=== PATIENT | female | born 1990 | race Caucasian/White ===

== ENCOUNTER 2019-08-24 22:54 | Emergency (ER) | payer SELFPAY ==
[2019-08-24 23:15] VITALS: BP 122/79; PULSE 59; RESP 16; TEMP 36.8; O2SAT 99; BMI 25.7
--- NOTE | 2019-08-24 23:21 | US_ITS ---
WS: [id number] RIGHT UPPER QUADRANT ULTRASOUND HISTORY: Pain COMPARISON: 06/13/2017 Liver: 12.1 cm in length. Normal size and echogenicity with no intrahepatic dilatation. No mass. Gallbladder: Normally distended gallbladder. Nonshadowing focus near the neck of the gallbladder. May be a nonshadowing stone or polyp. No gallbladder wall thickening. No pericholecystic fluid. CBD: 0.4 cm Pancreas: Poorly visualized. Right kidney: 10.3 cm in length. Normal echogenicity with no mass or hydronephrosis. Aorta and IVC: Unremarkable. No ascites. US/US gall bladder [id number] IMPRESSION: 1. Nonshadowing adherent gallstone,, fold versus polyp. 2. No bile duct dilatation or wall thickening.
--- NOTE | 2019-08-24 23:24 | W.ED.ABDPA2 ---
HPI - Abdominal Pain General: Chief Complaint: Abdominal Pain Stated Complaint: abd pain Time Seen by Provider: 08/24/19 23:17 Source: patient and family Mode of arrival: ambulatory Limitations: no limitations History of Present Illness: HPI narrative: Patient is a very nice 28-year-old female who presents to ED today along with her mother for complaints of right upper abdominal pain that has been intermittently present over the past year but severe starting around 5 PM this evening. Luxembourgish is not patient's or mother's primary language so majority of history comes from the mother's interpretation. She states patient was diagnosed with cholelithiasis approximately a year ago. She has had intermittent pains worse with eating over the past year but nothing that has felt like her pain this evening. She feels nauseous but has not had any vomiting. Reports some mild constipation. She is not having any urinary symptoms. No fevers. She does report a chance of . Patient is a [id number] female. MD elicited complaint: abdominal pain Pertinent past history: other (cholelithiasis) Onset (ago): hour(s) (has had intermittently x one year but severe starting around 5pm this evening) Pain Consistency: constant Location: RUQ Severity: severe Quality: stabbing and sharp Radiation: RUQ Exacerbating factors: eating and movement Relieving factors: nothing Associated Symptoms: Reports nausea; Denies change in stool character, chills, diarrhea, dysuria, fever(s), heartburn, hematochezia, hematemesis, fecal incontinence, melena, syncope and vomiting Related Data: Date of Last Menstrual Period: 07/23/19 Review of Systems General: Reports: 10 or more systems reviewed and unremarkable except in HPI and below Const: Denies: fever, chills, body aches, fatigue or malaise Eyes: Denies: change in vision or blurry vision Card: Denies: chest pain, palpitations, irregular heart rhythm, lightheadedness, syncope or shortness of breath on exertion Resp: Denies: shortness of breath, productive cough or pain on inspiration GI: Reports: abdominal pain and nausea; Denies: vomiting, vomiting blood, heartburn/indigestion, diarrhea, fecal incontinence, change in stool character, blood in stool, black tarry stool or fatty stool : Denies: flank pain, difficulty urinating, painful urination, urinary frequency, urinary urgency or urinary hesitancy Musc: Denies: neck pain, back pain or joint pain Skin/Breast: Denies: rash Neuro: Denies: headache, numbness in extremities, weakness in extremities or changes in sensation PFSH ED PFSH: Social History Smoking and tobacco status: never smoked Female Reproductive History: Date of last menstrual period: 07/23/19 Physical Exam Const: COMMON NORMALS: average body habitus, oriented x3, no limitations, healthy appearing, alert and well nourished GENERAL APPEARANCE: cooperative and in distress (appears very uncomfortable due to pain) HENMT: COMMON NORMALS: normocephalic and head/scalp atraumatic HEAD & SCALP: normocephalic and atraumatic Resp: COMMON NORMALS: normal respiratory effort and clear to auscultation bilaterally AUSCULTATION: clear to auscultation bilaterally Cardio: COMMON NORMALS: regular rate and regular rhythm RATE: regular rate RHYTHM: regular rhythm GI: COMMON NORMALS: normal to inspection, nondistended, normoactive bowel sounds, soft to palpation, no hepatosplenomegaly and no masses PALPATION: Yes soft, Yes tender (very tender to RUQ; positive Villanueva's; mild tenderness to RLQ) and Yes no hepatosplenomegaly : COMMON NORMALS: Yes no CVA tenderness BLADDER/KIDNEY EXAM: Yes no CVA tenderness Back/Pelvis: COMMON NORMALS: no CVA tenderness OTHER: states pain from RUQ radiates into back Extremity: COMMON NORMALS: normal to inspection Neuro: COMMON NORMALS: oriented x3 SENSORIUM/ORIENTATION: Yes alert Skin: COMMON NORMALS: no rashes or lesions noted GENERAL SKIN EXAM: no rashes or lesions noted Course Vital Signs: Vital signs: Vital Signs Temperature 98.3 F 08/24/19 23:15 Pulse Rate 54 L 08/25/19 00:31 Respiratory Rate 16 08/25/19 00:31 Blood Pressure 100/61 08/25/19 00:31 Pulse Oximetry 97 08/25/19 00:31 MDM - Abdominal Pain MDM Narrative: Medical decision making narrative: Pt feels better after medications given here. Patient is not tachycardic or febrile. She has no white count on her CBC. Patient's LFTs are normal. Ultrasound report was called to Dr. Miguel who relayed to me. He recommends getting patient set up with outpatient general surgery follow-up. Information placed with case management. Strict return to ED precautions given. Lab Data: Labs: Lab Results 08/24/19 08/24/19 08/24/19 Range/Units 23:40 23:40 23:40 WBC 4.6 (4.0-10.0) 10^3/ uL RBC 4.50 (4.1-5.3) 10^6/u L Hgb 14.0 (11.5-15.3) g/dL Hct 41.2 (37.0-47.0) % MCV 91.6 (81-99) fL MCH 31.1 (28.0-34.0) pg MCHC 34.0 (30.0-36.0) g/dL RDW 11.9 L (12.1-15.1) % Plt Count 201 (130-400) 10^3/c mm MPV 10.1 (7.4-10.4) fL Neut % (Auto) 46.6 % Lymph % (Auto) 43.2 % [place] % (Auto) 7.2 % Eos % (Auto) 2.6 % Baso % (Auto) 0.2 % Neut # (Auto) 2.2 (1.8-7.7) 10^3/u L Lymph # (Auto) 2.0 (0.8-4.8) 10^3/u L [place] # (Auto) 0.3 (0.2-0.9) 10^3/u L Eos # (Auto) 0.1 (0.0-0.8) 10^3/u L Baso # (Auto) 0.0 (0.0-0.1) 10^3/u L Nucleated RBC % (a uto) 0 % Nucleated RBCs # 0.0 /100WBC Sodium 140 (136-145) mmol/L Potassium 3.4 L (3.5-5.1) mmol/L Chloride 101 (98-107) mmol/L Carbon Dioxide 23 (22-29) mmol/L Anion Gap 19.4 H (5-19) BUN 8 (6-20) mg/dL Creatinine 0.6 (0.5-0.9) mg/dL GFR Calculation 119.9 (90-130) mL/min Glucose 96 (65-115) mg/dL Calculated Osmolal ity 286 (285-295) mOsm/k g Calcium 10.8 H (8.5-10.5) mg/dL Total Bilirubin 0.7 (0.15-1.2) mg/dL AST 16 (0-32) U/L ALT 11 (0-33) U/L Alkaline Phosphata se 58 (35-105) IU/L Total Protein 7.6 (6.6-8.7) g/dL Albumin 4.9 (3.5-5.2) g/dL Globulin 2.7 (1.3-4.6) g/dL Lipase 54 (13-60) U/L HCG, Qual Negative (Negative) Urine Color (Yellow) Urine Appearance (CLEAR) Urine pH (5-7) Ur Specific Gravit y (1.005-1.030) Urine Protein (Negative) Urine Glucose (UA) (Normal) Urine Ketones (Negative) Urine Blood (Negative) Urine Nitrate (Negative) Urine Bilirubin (NEGATIVE) Prot Sulfosalicyli c Acd Urine Urobilinogen (Negative) mg/dL Ur Leukocyte Olivia ase (Negative) Urine RBC (0-2) /hpf Urine WBC (0-5) /hpf Ur Squamous Epith Cells (0-5) Urine Bacteria (NONE) 08/25/19 Range/Units 00:05 WBC (4.0-10.0) 10^3/ uL RBC (4.1-5.3) 10^6/u L Hgb (11.5-15.3) g/dL Hct (37.0-47.0) % MCV (81-99) fL MCH (28.0-34.0) pg MCHC (30.0-36.0) g/dL RDW (12.1-15.1) % Plt Count (130-400) 10^3/c mm MPV (7.4-10.4) fL Neut % (Auto) % Lymph % (Auto) % [place] % (Auto) % Eos % (Auto) % Baso % (Auto) % Neut # (Auto) (1.8-7.7) 10^3/u L Lymph # (Auto) (0.8-4.8) 10^3/u L [place] # (Auto) (0.2-0.9) 10^3/u L Eos # (Auto) (0.0-0.8) 10^3/u L Baso # (Auto) (0.0-0.1) 10^3/u L Nucleated RBC % (a uto) % Nucleated RBCs # /100WBC Sodium (136-145) mmol/L Potassium (3.5-5.1) mmol/L Chloride (98-107) mmol/L Carbon Dioxide (22-29) mmol/L Anion Gap (5-19) BUN (6-20) mg/dL Creatinine (0.5-0.9) mg/dL GFR Calculation (90-130) mL/min Glucose (65-115) mg/dL Calculated Osmolal ity (285-295) mOsm/k g Calcium (8.5-10.5) mg/dL Total Bilirubin (0.15-1.2) mg/dL AST (0-32) U/L ALT (0-33) U/L Alkaline Phosphata se (35-105) IU/L Total Protein (6.6-8.7) g/dL Albumin (3.5-5.2) g/dL Globulin (1.3-4.6) g/dL Lipase (13-60) U/L HCG, Qual (Negative) Urine Color Colorless (Yellow) Urine Appearance Hazy A (CLEAR) Urine pH 8 H (5-7) Ur Specific Gravit y 1.015 (1.005-1.030) Urine Protein Neg (Negative) Urine Glucose (UA) Norm (Normal) Urine Ketones 1+ H (Negative) Urine Blood Neg (Negative) Urine Nitrate Negative (Negative) Urine Bilirubin Neg (NEGATIVE) Prot Sulfosalicyli c Acd Negative Urine Urobilinogen Norm (Negative) mg/dL Ur Leukocyte Olivia ase Negative (Negative) Urine RBC None (0-2) /hpf Urine WBC None (0-5) /hpf Ur Squamous Epith Cells 25-40 H (0-5) Urine Bacteria Trace (NONE) Imaging Data ^: US gallbladder: My impression: Josr D-one gallstone in neck of gallbladder, another in fundus; no acute cholecystitis Discharge Plan Discharge Patient Disposition: Home, Self-Care Clinical Impression: Cholelithiasis Qualifiers: Cholelithiasis location: gallbladder Cholecystitis presence: without cholecystitis Biliary obstruction: without biliary obstruction Qualified Code(s): K80.20 - Calculus of gallbladder without cholecystitis without obstruction Condition: Stable Prescriptions: New hydrocodone-acetaminophen 5-325 mg tablet 1 tab PO Q4H PRN (Reason: pain) Qty: 20 RF: 0 ondansetron HCl [Zofran] 4 mg tablet 4 mg PO Q6H PRN (Reason: nausea and vomiting) Qty: 14 RF: 0 Discharge Orders: Discharge Order (Routine); Ordered 08/25/19 Ordered By: Wanda Gardner Referrals: Messi Siegel MD [Family Provider] - Discharge Diet: Low Fat Discharge Activity: Increase activity as tolerated Patient Instructions: Cholelithiasis Activity Restrictions/Additional Instructions: As discussed case management should contact you to set you up with general surgery. I have written you for pain and nausea medications however if these do not control your pain adequately or if pain continues to worsen, you have repetitive episodes of vomiting, fevers greater than 100.4, or any other concerns you may have you may need to return to the emergency department for reevaluation. Coding Level of Care Code ED [employer] Science Teacher for Eveline Bateman Exam Comprehensive
[2019-08-24] MEDS: ondansetron 2 mg/ML SDV 2 mL 4 MG IVP (23:51)
[2019-08-24] MEDS: sodium chloride 0.9% 1,000 ML 100 ML IV (23:51)
[2019-08-24] MEDS: morphine 4 mg/mL SDV 1 mL IVP (23:52)
[2019-08-24 23:53] LABS: Basophils % 0.2 %; Eosinophils # 0.1 10^3/uL (0.0-0.8); Eosinophils % 2.6 %; Hematocrit 41.2 % (37.0-47.0); Lymphocytes % 43.2 %; Mean Corpuscular Hemoglobin 31.1 pg (28.0-34.0); Mean Corpuscular Volume 91.6 fL (81-99); Mean Platelet Volume 10.1 fL (7.4-10.4); Monocytes # 0.3 10^3/uL (0.2-0.9); Monocytes % 7.2 %; Neutrophils # 2.2 10^3/uL (1.8-7.7); Neutrophils % 46.6 %; Nucleated Red Blood Cells % 0 %; Platelet Count 201 10^3/cmm (130-400); Red Cell Distribution Width 11.9 % (12.1-15.1); White Blood Count 4.6 10^3/uL (4.0-10.0)
[2019-08-25 00:09] LABS: Alanine Aminotransferase 11 U/L (0-33); Albumin Level 4.9 g/dL (3.5-5.2); Alkaline Phosphatase 58 IU/L (35-105); Anion Gap 19.4 (5-19); Aspartate Amino Transferase 16 U/L (0-32); Blood Urea Nitrogen 8 mg/dL (6-20); Calcium 10.8 mg/dL (8.5-10.5); Carbon Dioxide 23 mmol/L (22-29); Chloride 101 mmol/L (98-107); Globulin 2.7 g/dL (1.3-4.6); Glomerular Filtration Rate 119.9 mL/min (90-130); Glucose 96 mg/dL (65-115); Lipase 54 U/L (13-60); Osmolality Calculated 286 mOsm/kg (285-295); Potassium 3.4 mmol/L (3.5-5.1); Sodium 140 mmol/L (136-145); Total Bilirubin 0.7 mg/dL (0.15-1.2); Total Protein 7.6 g/dL (6.6-8.7)
[2019-08-25 00:18] LABS: HCG, Serum Qual Negative (Negative)
[2019-08-25 00:28] VITALS: RESP 16
[2019-08-25] MEDS: fentaNYL 50 mcg/mL INJ 2mL IVP (00:28)
[2019-08-25 00:31] VITALS: BP 100/61; PULSE 54; RESP 16; O2SAT 97
[2019-08-25 00:50] LABS: Urine Color Colorless (Yellow)
[2019-08-25 00:51] LABS: Bilirubin Urine Neg (NEGATIVE); Blood Urine Neg (Negative); Glucose Urine UA Norm (Normal); Ketones Urine 1+ (Negative); Leukocyte Esterase Urine Negative (Negative); Nitrate Urine Negative (Negative); Protein Urine Neg (Negative); Specific Gravity, Urine 1.015 (1.005-1.030); Sulfosalicylic Acid Urine Negative; Urine Appearance Hazy (CLEAR); Urobilinogen Urine Norm (Negative); pH Urine 8 (5-7)
[2019-08-25 00:52] LABS: Add Urine Culture? No; Bacteria Urine TRACE; Squamous Epithelial Cell Urine 25-40 (0-5)
[2019-08-25 01:31] VITALS: BP 106/53; PULSE 54; RESP 16; O2SAT 98
[2019-08-25] MEDS: ondansetron 4 MG Tablet PO (01:31)
[2019-08-25] MEDS: HYDROcodone-acetaminophen 5-325 mg Tablet 2 TAB PO (01:31)
--- NOTE | 2019-08-25 10:18 | DCPLANNER ---
sales center manager had message to schedule a follow up appointment for patient with general surgery. sales center manager called [facility], spoke with Jodie. A follow up appointment was scheduled for Wednesday, August 28, 2019 at 11:[address] Cummings. sales center manager called patients and informed the of the scheduled appointment.
--- NOTE | 2019-09-08 13:59 | DCPLANNER ---
Patient did attend appointment scheduled for 08.28.19 with surgical first assistant clinic.
== END 2019-08-25 01:34 | disposition home or self-care (01) ==
PROVIDERS: Emergency Medicine; Emergency Provider Physician Assistant; Family Provider Family Medicine
DX: K80.20 Calculus of gallbladder without cholecystitis without obstruction (principal)
CPT/HCPCS: 12345; 76705; 80053; 81001; 83690; 84703; 85025; 96361; 96374; 96375; 99282; 99284; J2270; J2405; J3010; J7030; Q0162

== ENCOUNTER 2019-09-04 06:03 | Day surgery (SDC) | payer SELFPAY ==
[2019-09-01 12:08] VITALS: BMI 25.3
[2019-09-04] VITALS (15 sets, daily range): BP systolic 100–124; BP diastolic 63–86; PULSE 48–75; RESP 11–28; TEMP 36.4–36.6; O2SAT 97–100
--- NOTE | 2019-09-04 06:16 | W.PM.OPSUD ---
Surgery/Procedure H&P Update DATE OF PROCEDURE: September 04, 2019 DATE H&P PERFORMED: 08/28/19 H&P UPDATE INFORMATION: I have reviewed H&P completed within last 30 days, I have examined patient prior to procedure and No changes to prior documentation PREOP DIAGNOSIS: Biliary colic PRIMARY INDICATION FOR PROCEDURE: The same PLANNED PROCEDURE: Operation Date: 09/04/19 07:20 Proposed Procedures p Laparoscopic Cholecystectomy 30948 K80.20(Not Applicable) - Willy Cummings MD
--- NOTE | 2019-09-04 06:38 | ANES.PREANE2 ---
Pre-Anesthetic Assessment Pre-Anesthetic Assessment: Height/Weight: Height 1.6 m Weight 64.864 kg Preop Diagnosis: Biliary colic Proposed Procedure: Operation Date: 09/04/19 07:00 Proposed Procedures p Laparoscopic Cholecystectomy 28521 K80.20(Not Applicable) - Willy Cummings MD Familial anesthetic complications: None Was Beta Dennis taken within 24 hours: N/A Last intake: Intake NPO > 8 hrs Last Liquid Date 09/03/19 Last Liquid Time 21:30 Last Solid Date 09/03/19 Last Solid Time 17:00 Social: Social History: No alcohol and No tobacco Exam: Pre-Anes Outpt Exam: alert, oriented x 3, clear to auscultation bilaterally and regular rate & rhythm Airway: Cervical ROM: WNL MP: 3 Dentition: Full Pulmonary: Pulmonary: None reported CV/HEM: CV/HEM: None reported : : None reported Hepatic: Hepatic: None reported GI: GI: None reported Comments: gallstones Metabolic: Metabolic: None reported Musc/skel: Musc/skel: None reported Neuropsych: Neuropsych: None reported Anesthetic Plan: ASA status: 1 Anesthesia: General Risk of > 500 ml blood loss (7ml/kg in children): No PFSH Anesthesia PFSH: Social History Smoking and tobacco status: never smoked Female Reproductive History: Date of last menstrual period: 07/23/19 Data Anesthesia Cardiac Studies: No Data to Display
[2019-09-04] MEDS: sodium chloride 0.9% 1,000 ML 30 ML IV (06:45)
[2019-09-04 06:52] LABS: OR HCG Qualitative Urine Negative (Negative)
[2019-09-04] MEDS: lidocaine 2% INJ 20 mL INJECTION (07:13)
--- NOTE | 2019-09-04 08:02 | PM.OP ---
Operative Report Date of procedure: September 04, 2019 Pre-op Diagnosis: Biliary colic Post-op diagnosis: other (Chronic cholecystitis) Procedure Done: Laparoscopic cholecystectomy Specimens removed/disposition: Gallbladder and contents Surgeon: Willy Cummings Mathematical Engineering Technician: Surgical mary grace Patricia Circulating nurse Caro Anesthesia: General (clean room assembler Luis) Estimated blood loss (mL): 10 Complications: No immediate complications Condition: stable Disposition: same day Brief History: This is a pleasant 28 years old female patient presenting to my practice as a consultation for symptomatic biliary colic. Plan of care; After thorough history physical examination and reviewing the chart ,I counseled the patient for laparoscopic cholecystectomy possible open, indications risks including but not limited injury to the common bile duct and other viscera.benefits and alternatives all discussed with the patient, and she did agree to proceed. All questions have been answered and all concerns have been addressed to patient's satisfaction. Informed consent per chart Procedure: Patient was identified in the holding area and taken back to the operative suite, placed in supine position intubated by anesthesia . Time-out was done verifying the patient's name/date of /planned procedure and destination after the procedure, all were in agreement. SCDs confirmed to be functioning, preoperative antibiotics administered per protocol, and beta whitney protocol was confirmed. Patient was appropriately secured to the table, footboard was applied to the OR table, before prep and drape anesthesia was asked to tilt the table back and forth to make sure that the patient is appropriately secured and she was. Prep and drape of the abdomen was done under the usual sterile technique, followed by that supraumbilical skin incision,skin incision was done by a 15 blade knife, and stay sutures were applied to the fascia and Alonzo trocar technique was used to enter the abdominal without injuring any abdominal viscera, started by low flow gas insufflation followed by a high flow, started with a 10 mm laparoscope and under direct vision there was no evidence of any injuries, the scope then switched to a 30? ,10 millimeter scope and under direct visualization 5 millimeter trocar was inserted in the epigastric region followed by two 5 mm trocars were inserted in the right upper quadrant that was done after injection of local lidocaine 2% at all incision sites. Gallbladder showed chronic cholecystitis. Patient was then positioned in the head up and tilted to the left dissection started by taking adhesions down using [place] forceps with heat, continued dissection until I identified the critical view of the cystic duct and cystic artery where seen connected to the gallbladder. Clips were applied on the cystic duct towards the common bile duct 1 towards the gallbladder then divided is in sharp scissors, 2 clips were then applied onto the cystic artery and 1 towards the gallbladder and divided by sharp scissors. Additional traversing vessel was clipped and divided Dissection was then carried along of the gallbladder from the gallbladder fossa using cautery as well as sharp dissection with heat energy. The gallbladder then was dissected out from the gallbladder fossa totally , cholecystectomy was then achieved and was placed in an Endo Catch bag and then retrieved from the Alonzo trocar site under direct visualization using a 5 mm 30? scope through the epigastric trocar, specimen was then passed to the circulating nurse to go for permanent pathology,irrigation and hemostasis was done to the gallbladder fossa after hemostasis was secured, final survey laparoscopy was done that showed no injuries.Suction irrigation was obtained The supraumbilical fascial defect was then closed using interrupted Vicryl sutures using a fascial closure device ;Dewayne Lee under direct visualization Gas was allowed to deflate,Trocars were then taken out under direct vision there was no evidence of bleeding Specimen was passed to the circulating nurse for permanent pathology. No drains were placed and the supraumbilical incision as well as all trocar sites were closed by by 4-0 Monocryl to approximate the skin edges of the supraumbilical incision, dressing was applied in the form of Dermabond and the patient patient got extubated and was taken to recovery area in a stable condition. Count of sponges,needles and instruments were completed at the end of the procedure I was present for the whole entire procedure.
--- NOTE | 2019-09-04 08:17 | SUR.PHASEI ---
0815 PATIENT TO PACU AT THIS TIME FROM OR. RR EVEN AND UNLABORED. NO DISTRESS. PATIENT SPO2 98% ON ROOM. 4 INCISIONS TO ABDOMEN, CLOSED WITH EXOFIN, CDI.
[2019-09-04] MEDS: fentaNYL 50 mcg/mL INJ 2mL IVP (08:51)
--- NOTE | 2019-09-04 09:09 | SUR.PHASEI ---
0907 PATIENT TO OPS AT THIS TIME. AROUSES TO VERBAL STIMULI, DROWSY. SPO2 97% ON RA. PAIN /10. DENIES NAUSEA.
[2019-09-04] MEDS: HYDROcodone-acetaminophen 5-325 mg Tablet 1 TAB PO (09:44)
--- NOTE | 2019-09-04 12:04 | SUR.PHASEII ---
JAIRO ONE GIVEN TO PT PRIOR TO LEAVING PER DR VILLANUEVA ORDER AND INSTRUCTED PT TO TAKE AT 145PM AND VERBALIZED UNDERSTANDING,INSTRUCTED FRIEND JACKIE OF THIS ALSO BECAUSE SHE PICKED PT UP IN [facility] TO GO HOME
== END 2019-09-04 11:55 | disposition home or self-care (01) ==
PROVIDERS: Anesthesiology; Family Provider Family Medicine; PCP Family Medicine; Visit Provider Surgery
PROC: 0FT44ZZ Resection of Gallbladder, Percutaneous Endoscopic Approach (ICD-10-PCS; CPT 47562; principal; 2019-09-04 07:00)
DX: K80.10 Calculus of gallbladder with chronic cholecystitis without obstruction (principal)
CPT/HCPCS: 47562; 12345; 81025; 84703; 88304; 96365; J0131; J0690; J1100; J2001; J2370; J2405; J2704; J2710; J3010; J3490; J7030

== ENCOUNTER 2020-06-13 09:35 | Inpatient (IN) | payer MEDICAID, SELFPAY ==
[2020-06-13] VITALS (66 sets, daily range): BP systolic 89–122; BP diastolic 50–83; PULSE 62–99; RESP 16–18; TEMP 36.4–36.9; O2SAT 98–100; BMI 29.9
[2020-06-13] MEDS: miSOPROStol 100 mcg tablet 25 MCG VAGINAL ×2 (11:00→15:16)
[2020-06-13 11:01] LABS: Basophils % 0.2 %; Eosinophils # 0.1 10^3/uL (0.0-0.8); Eosinophils % 0.8 %; Hemoglobin 11.6 g/dL (11.5-15.3); Lymphocytes # 1.4 10^3/uL (0.8-4.8); Lymphocytes % 21.5 %; Mean Corpuscular HGB Conc 33.1 g/dL (30.0-36.0); Mean Corpuscular Hemoglobin 30.8 pg (28.0-34.0); Mean Corpuscular Volume 92.8 fL (81-99); Mean Platelet Volume 10.3 fL (7.4-10.4); Monocytes # 0.4 10^3/uL (0.2-0.9); Monocytes % 6.2 %; Neutrophils # 4.66 10^3/uL (1.8-7.7); Neutrophils % 70.5 %; Nucleated Red Blood Cells % 0 %; Platelet Count 208 10^3/cmm (130-400); Red Blood Count 3.77 10^6/uL (4.1-5.3); Red Cell Distribution Width 13.7 % (12.1-15.1); White Blood Count 6.6 10^3/uL (4.0-10.0)
[2020-06-13] MEDS: lactated ringers 1,000 ML 999 ML IV ×2 (17:10→18:03)
--- NOTE | 2020-06-13 17:43 | P.ANESASSM_ITS ---
Pre-Anesthetic Assessment Pre-Anesthetic Assessment: Height/Weight: Height 1.68 m Weight 84.368 kg Temp Pulse Resp BP 97.7 F 67 17 104/66 06/13/20 14:00 06/13/20 15:46 06/13/20 14:53 06/13/20 15:46 Preop Diagnosis: labor pain Proposed Procedure: epidural Was Beta Dennis taken within 24 hours: N/A Social: Social History: No alcohol and No tobacco Exam: Pre-Anes Outpt Exam: alert, oriented x 3, clear to auscultation bilaterally and regular rate & rhythm Airway: Submandibular: WNL Cervical ROM: WNL MP: 2 Dentition: Full Pulmonary: Pulmonary: None reported CV/HEM: CV/HEM: None reported : : None reported Hepatic: Hepatic: None reported GI: GI: GERD Metabolic: Metabolic: None reported Musc/skel: Musc/skel: None reported Neuropsych: Neuropsych: HAINES Anesthetic Plan: ASA status: 2 Anesthesia: Regional (specify below) Risk of > 500 ml blood loss (7ml/kg in children): No Meds/Allergies Current Medications: Current Medications Generic Name Dose Route Start Last Admin Trade Name Freq PRN Reason Stop Dose Admin Dextrose/Lactated Ringer's 1,000 mls @ 125 m ls/hr 06/13/20 10:15 06/13/20 16:06 Dextrose 5%-Lact ated Ringers IV Not Given .Q8H MALCOLM Lactated Ringer's 1,000 mls @ 999 m ls/hr 06/13/20 17:03 06/13/20 17:10 Lactated Ringers IV 999 mls/hr .Q1H1M PRN Administration See label comment s PFSH Anesthesia PFSH: Medical History Right upper quadrant abdominal pain Surgical History History of laparoscopic cholecystectomy (~08/2019) Family History Denies family history of Anesthesia complication Bleeding disorder Social History Smoking and tobacco status: never smoked Female Reproductive History: Date of last menstrual period: 07/23/19 : 7 Data Anesthesia CBC & Chem 7: 06/13/20 10:10 Other Labs: Laboratory Results - last 48 hr 06/13/20 10:10 WBC 6.6 RBC 3.77 L Hgb 11.6 Hct 35.0 L MCV 92.8 MCH 30.8 MCHC 33.1 RDW 13.7 Plt Count 208 MPV 10.3 Neut % (Auto) 70.5 Lymph % (Auto) 21.5 [place] % (Auto) 6.2 Eos % (Auto) 0.8 Baso % (Auto) 0.2 Neut # (Auto) 4.66 Lymph # (Auto) 1.4 [place] # (Auto) 0.4 Eos # (Auto) 0.1 Baso # (Auto) 0.0 Nucleated RBC % (auto) 0 Nucleated RBCs # 0.0 Cardiac Studies: No Data to Display
--- NOTE | 2020-06-13 17:49 | PC.NURSE ---
sitting up for epidural placement
--- NOTE | 2020-06-13 18:11 | P.ANES_ITS ---
Anesthesia Procedures Procedure/Date: 06/13/20 epidural Procedure Narrative: epidural complete, bolus given, epidural pump initiated with ISSUING OPERATOR education given, vitals taken during procedure using OBIX system and satisfactory throughout, patient admits to decrease pain, report of procedure to OB RN Epidural: Time Out Performed: Yes Consents Signed: Procedure Consent Consent: requested by attending/covering physician, from patient, risks and benefits reviewed and patient agrees to proceed Lumbar Level: L3-L4 Epidural position: sitting Epidural procedure: sterile prep of area, 1% lidocaine to numb the area (3 mL), 18 g needle, negative for paresthesia passed, neg for paresthesia, test dose given, 1.5% xylocaine 1:200k epi (5 mL), 0.2% Ropivacaine bolus ml (5 mL), placed PCEA, no systemic response, sterile dressing applied, L.U.D. no apparent complications and 0.2% Ropiavacaine @ mls/hr (13 mL/hr)
[2020-06-14] VITALS (108 sets, daily range): BP systolic 79–156; BP diastolic 45–84; PULSE 63–132; RESP 14–18; TEMP 36.2; O2SAT 98–100
[2020-06-14] MEDS: miSOPROStol 200 mcg Tablet 800 MCG PR (01:05)
--- NOTE | 2020-06-14 01:13 | PM.DELIVERY ---
Delivery Note: Date of delivery: June 14, 2020 this 29-year-old 7 now para 7 female with an EDC of June 15, 2020 was admitted on the day prior to delivery for misoprostol cervical ripening for induction for elective vaginal delivery. There were no major problems throughout her course. The patient was given misoprostol 25 mcg x 2 doses after which active labor ensued and she slowly dilated to complete cervical dilatation. She delivered by spontaneous vaginal delivery a healthy, viable male with Apgars of 8 and 9 at 1 and 5 minutes respectively. The infant delivered at 00 52. The baby cried well at . There was a nuchal cord x1. After delivery, the infant was suctioned and laid on mother's abdomen. After approximately 2-1/2 minutes the umbilical cord was clamped and then cut by the 's father. The umbilical cord had 3 blood vessels. The placenta delivered spontaneously at 00 57 and appeared to be intact. Upon delivery, the fundus appears firm. However, after several minutes she began bleeding much more heavily in spite of misoprostel and Tranxemic acid This physician returned to the room and with bimanual exam found her to have an inverted uterus. Assistance was called for and this physician begin attempting to maneuver the uterus back. This physician was unsuccessful and we brought the patient back to the operating room where we began procedures for anesthesia be provided and Dr. Chris to assist in replacement of the inverted uterus. I greatly appreciate her assistance and the assistance of anesthesia. Pre-Delivery Course: With patient was followed through her course by this physician. There were no major problems or concerns through her course. Maternal blood type was AB+ with antibody screen negative. Group B strep was negative and rubella was immune. She did suffer from Covid 19 a few weeks prior to delivery and therefore required no further testing. Delivery: Spontaneous vaginal delivery. Uterine inversion as described above and she required operating room and anesthesia for replacing the uterus. This was successfully done by Dr. Griffin. Post-Delivery Status: Patient is improving with uterine placement. She presently is receiving 2 units of O- blood and will be followed closely for further needs and further bleeding. A&P Assessment and plan (1) Uterine inversion: Patient required going to the operating room for replacement of the inverted uterus. Dr. Griffin was consulted and I greatly appreciate her assistance. We will monitor blood pressure. Also, will begin ampicillin and gentamicin for possible prevention of infection. Status: Acute (2) Spontaneous vaginal delivery: Vaginal delivery went without significant problems or concerns initially. However there was an inverted uterus found shortly after delivery. Status: Acute Coding Level of Care Code Acute Coil Wrapper for [facility] Fwd Diagnoses Uterine inversion N85.5 Spontaneous vaginal delivery O80
[2020-06-14] MEDS: lactated ringers 1,000 ML 999 ML IV (01:26)
--- NOTE | 2020-06-14 02:03 | P.CONIM_ITS ---
Providers/Reason For Consult Consulting Physican/Specialty*: Cori Griffin MD. PRESSURIZATION MECHANIC Reason for Consult*: uterine inversion Requesting Physcian: Messi Siegel MD Attending Physician: Messi Siegel MD Primary Care Provider: Messi Siegel MD History of Present Illness History of Present Illness Lizette Eli is a 29 year old female at 39 6/7 weeks who I was consulted to see due to inverted uterus. Review of Systems General: Reports: 10 or more systems reviewed and unremarkable except in HPI and below Meds/Allergies Home Medications and Allergies Home Medications Medication Instructions Recorded Confirmed Last Taken Type fgdlrswa-[id number]-Xl-FA 1 tab PO DAILY 06/13/20 06/13/20 Unknown History [] Allergies Allergy/AdvReac Type Severity Reaction Status Date / Time No Known Allergies Allergy Verified 09/13/19 10:10 Current Medications Current Medications Generic Name Dose Route Start Last Admin Trade Name Freq PRN Reason Stop Dose Admin Dextrose/Lactated Ringer's 1,000 mls @ 125 mls/hr 06/13/20 10:15 06/13/20 16:06 Dextrose 5%-Lactated Ringers IV Not Given .Q8H MALCOLM Lactated Ringer's 1,000 mls @ 999 mls/hr 06/13/20 10:11 06/14/20 01:26 Lactated Ringers IV 999 mls/hr .Q1H1M PRN Administration BLEEDING Lactated Ringer's 1,000 mls @ 999 mls/hr 06/13/20 10:11 06/13/20 18:03 Lactated Ringers IV 999 mls/hr .Q1H1M PRN Administration Per L&D Rescitation Protocol Tranexamic Acid 1,000 mg/ 110 mls @ 330 mls/hr 06/13/20 10:11 06/14/20 01:12 Sodium Chloride IV 330 mls/hr Q30M PRN Administration BLEEDING Ropivacaine 200 mg in 100 mls @ 13 mls/hr 06/13/20 17:15 06/13/20 18:02 Naropin Premix EPIDURAL 13 mls/hr .Q7H42M MALCOLM Administration Lactated Ringer's 1,000 mls @ 999 mls/hr 06/13/20 17:03 06/13/20 17:10 Lactated Ringers IV 999 mls/hr .Q1H1M PRN Administration See label comments PFSH Acute PFSH: Medical History (Updated 06/14/20 @ 02:15 by Messi Siegel MD) Right upper quadrant abdominal pain Surgical History History of laparoscopic cholecystectomy (~08/2019) Family History Denies family history of Anesthesia complication Bleeding disorder Social History Smoking and tobacco status: never smoked Female Reproductive History: Date of last menstrual period: 07/23/19 : 7 Vitals/I&O/Wt Last Vital Signs Temp 98.1 F 06/13/20 19:15 Pulse 82 06/14/20 01:28 Resp 18 06/13/20 18:13 BP 119/56 06/14/20 01:24 Pulse Ox 99 06/14/20 01:28 Weight last 48 hrs Weight 185 lb 15.993 oz Physical Exam Narrative: EXAM NARRATIVE: I was consulted to see the patient regarding a uterine inversion after an uncomplicated vaginal delivery. She was already in the operating room in the dorsal lithotomy position. Anesthesia was present. The patient was alert and able to communicate. Urinary Catheter Management^: Beck: Cath Placed During This Visit: yes Reason for Continuing Indwelling Catheter: Acute Urinary Retention or Obstruction Urinary Catheter Date of Insertion: 06/13/20 Urinary Catheter Time of Insertion: 18:30 A&P Assessment and plan (1) Uterine inversion: Status: Acute Procedures Procedure Narrative On exam, the patient was in the dorsal lithotomy position in trendelenburg. There was a large amount of blood on the pad as I started. I performed a bimanual exam and after removing a large amount of blood and clot, the uterus was found to be inverted. 0.25mg of terbutaline was given subcutaneously. The uterus was still not able to be replaced. Anesthesia then gave her inhaled nitrous and the uterus relaxed and I was able to replace it. I continued to perform uterine massage. Blood products were started. Her bleeding had slowed to a trickle. At this point, she was hemodynamically stable with blood products infusing. Coding Level of Care Code Acute Auto Seat Cover Installer for g Fwd Diagnoses Uterine inversion N85.5
--- NOTE | 2020-06-14 02:50 | ANE.PACU2 ---
Inpatient post-anesthesia follow up: Airway intact: Yes Vital signs: Temperature 98.1 F Pulse Rate 82 Respiratory Rate 18 Blood Pressure 119/56 Pulse Oximetry 99 Oxygen Delivery Me thod Room Air Oxygen Flow Rate Fraction of Inspir ed Oxygen Hydration adequate: Yes Nausea and vomiting: No Pain level: 1 Mental status: Baseline Additional Comments: Patient vitals stabilized after procedure from OBGYN. Good respiratory effort. Patient admits to feeling better after blood and fluid resuscitation. Report to OB RN
[2020-06-14] MEDS: ampicillin 1,000 MG in sodium chloride 0.9% (plus) 50 ML 100 MG IV ×2 (04:35→09:12)
[2020-06-14] MEDS: gentamicin inj 140 MG in sodium chloride 0.9% (100 ml) 100 ML 103.5 MG IV (05:50)
--- NOTE | 2020-06-14 07:24 | P.PN_ITS ---
TYPEWRITER RIBBON WINDER Subjective Labor: Station: +1 Amniotic Membrane Status: Ruptured Monitor Mode: External Contraction Pattern: Irregular Status: Category I Other Post-Op: Subjective HALAL MEAT PACKER Post-Op: patient reports feeling better (She states she is pretty sore but her bleeding has been mild. She got up to the bathroom this morning.) Vitals/I&O/Wt Last Vital Signs Temp 97.2 F L 06/14/20 02:35 Pulse 83 06/14/20 07:21 Resp 16 06/14/20 02:50 BP 88/52 06/14/20 07:21 Pulse Ox 99 06/14/20 06:59 06/13/20 06/14/20 06/14/20 22:59 06:59 14:59 Output Total 750 / 750 Balance -750 / -750 Weight last 48 hrs Weight 84.368 kg Physical Exam Const: COMMON NORMALS: no acute distress, alert and well nourished GENERAL APPEARANCE: cooperative Resp: COMMON NORMALS: normal respiratory effort, No retractions, No use of accessory muscles and clear to auscultation bilaterally AUSCULTATION: clear to auscultation bilaterally Cardio: COMMON NORMALS: regular rate, regular rhythm and No murmurs present (Cardio) RATE: regular rate RHYTHM: regular rhythm GI: COMMON NORMALS: Normal to inspection, nondistended, normoactive bowel sounds present and Soft to palpation (Fundus is firm this morning.) PALPATION: Yes Soft to palpation (Fundus is firm this morning.) Neuro: COMMON NORMALS: moves all extremities, no focal motor deficits and no sensory deficits noted SENSORIUM/ORIENTATION: Yes alert Psych: COMMON NORMALS: mental status grossly normal, Normal thought process present and cooperative THOUGHT PROCESS: Normal thought process present Urinary Catheter Management^: Beck: Cath Placed During This Visit: yes Reason for Continuing Indwelling Catheter: Acute Urinary Retention or Obstruction Urinary Catheter Date of Insertion: 06/13/20 Urinary Catheter Time of Insertion: 18:30 Data : 06/13/20 10:10 A&P Assessment and plan (1) Spontaneous vaginal delivery: Patient is doing well at this time. We will continue routine care. Status: Acute (2) Uterine inversion: She is a little sore. Will provide liquid pain medication at her request. Status: Acute (3) Acute blood loss anemia: She has received 2 units of packed red blood cells and will check a CBC around 10 this morning. May require further transfusion. Status: Acute Attestations Medical Necessity Statement*: This patient delivered earlier this morning by s pontaneous vaginal delivery and had a uterine inversion. She will require at least 1 more midnight hospital stay. Time Spent in Patient Care: 16 - 35 minutes Coding Level of Care Code Acute Long Wall Mining Machine Tender for Chg Fwd Diagnoses Spontaneous vaginal delivery O80 Uterine inversion N85.5 Acute blood loss anemia D62
--- NOTE | 2020-06-14 08:46 | PC.NURSE ---
0118 DR. YOUNG TO BEDSIDE TO ASSESS BLEEDING 0119 DR. YOUNG PERFORMED BIMANUAL EXPLORATION WHERE AN INVERTED UTERUS WAS DISCOVERED. ATTEMPTED TO MANIPULATE UTERUS 0119 DR. RITCHIE CALLED TO UNIT TO ASSIST WITH UTERINE INVERSION 0122 PITOCIN INFUSION AND TXA INFUSION STOPPED PER DR. YOUNG 0123 SURESH PABON CALLED TO UNIT TO ASSIST WITH UTERINE INVERSION 0131 DR. YOUNG STOPS HOLDING PRESSURE ON UTERUS AND PT PREPPED TO GO TO OB OR. 0134 OB OR ROOM TIME 0135 O2 PLACED VIA NONREBREATHER AT 10L PER MIN 0136 SURESH PABON ARRIVES IN OB OR 0137 ROMERO PLACED 0138 PT PLACED IN [place] [address] DR[place] [address] DR. RITCHIE BEGINS PROCEDURE TO CORRECT UTERUS 0146 TERBUTALINE 0.25MG SUBCUT GIVEN 0150 NITRIOUS OXIDE GIVEN 0155 FIRST UNIT OF EMERGENCY BLOOD GIVEN 0206 TEMP 92.0 PER SKIN TEMPERATURE STRIP ON FOREHEAD, JARETT HUGGER PLACED ON PT 0211 METHERGINE 0.2MG GIVEN IN LEFT VASTUS LATERALIS 0216 BM CYTOTEC OUT 0217 97.8 TEMP 0225 PROCEDURE END TIME 0231 SECOND UNIT OF EMERGENCY BLOOD STARTED 0233 TYMPANIC TEMPERATURE 97.1 0234 PACU STARTED 0235 122/76 PULSE 90 RESP 18 100% O2 WITH NONREBREATHER AT 10L 0240 126/65 PULSE 83 RESP 16 O2 100% WITH NONREBREATHER AT 10L 0245 112/69 PULSE 83 RESP 16 O2 100% WITH NONREBREATHER AT 10L 0250 113/74 PULSE 85 RESP 16 O2 100% WITH NONREBREATHER AT 10L 0251 25 ML OF URINE OUT 0254 PT TRANSFERED IN STABLE CONDITION VIA BED TO OB 3 0255 PT ARRIVED IN OB 3 MONITORS PLACED O2 REAPPLIED VIA NONREBREATHER AT 10L 0352 SECOND UNIT OF EMERGENCY BLOOD END
[2020-06-14] MEDS: docusate sodium 100 mg Capsule PO ×2 (09:22→18:39)
[2020-06-14] MEDS: prenatal vitamin Capsule 1 CAP PO (09:22)
[2020-06-14] MEDS: ibuprofen 800 mg tablet PO (09:22)
--- NOTE | 2020-06-14 12:22 | PC.NURSE ---
Consult This mom has much experience with . Reviewed feeding frequency of 8 times in 24 hours or more after the first 24 hours. Feedings lasting 10 min or more. Dad asked about when that can slow down. Gave the recommended, exclusive for 6 months then as other foods are added, the breast feeding slows down. Mom asked about her diet saying she ate so much food and gained weight but could not make more milk. Told her a well balanced diet, not to gain weight and not to lose weight was best. To increase milk the best thing is to nurse more. Mom had just breastfed and said this was the best feeding so far. She was experiencing cramping. Showed her how to massage her uterus using two hands. The cramping eased. Provided contact information.
[2020-06-14 12:59] LABS: Hematocrit 30.2 % (37.0-47.0); Mean Corpuscular HGB Conc 33.1 g/dL (30.0-36.0); Mean Corpuscular Hemoglobin 30.5 pg (28.0-34.0); Mean Corpuscular Volume 92.1 fL (81-99); Platelet Count 196 10^3/cmm (130-400); Red Blood Count 3.28 10^6/uL (4.1-5.3); Red Cell Distribution Width 14.7 % (12.1-15.1); White Blood Count 11.3 10^3/uL (4.0-10.0)
--- NOTE | 2020-06-14 14:26 | SUR.OPER ---
d/c'd pt IV in left AC
[2020-06-14] MEDS: benzocaine-menthol 78 gm Canister 1 SPRAY TOPICAL (21:51)
[2020-06-14] MEDS: lanolin oint 7 gm 1 APPLIC TOPICAL (21:51)
[2020-06-15] MEDS: HYDROcodone-acetaminophen 5-325 mg Tablet PO ×4 (01:51→13:25)
[2020-06-15 06:00] VITALS: BP 102/68
--- NOTE | 2020-06-15 09:18 | PM.OBGYDC ---
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 She is a 7 now para 7 female. The induction and labor and delivery process was not well. However, after delivery there was found to be an inversion of the uterus with significant vaginal bleeding. This was attempted by this physician to be replaced in the delivery room, however this was unsuccessful. Dr. Griffin was consulted as was anesthesiology and she was brought to the operating room where with low-dose general anesthesia the uterus relaxed and the uterus was then replaced into its proper position. The bleeding slowed enormously at that time. However, prior to getting the uterus replaced there was a very large amount of blood loss with hypotension and blood pressure into the 70s systolic. She was given IV fluid boluses and 2 units of O- uncrossed matched red blood cells. Since this was completed she has done extremely well. She is very sore in her uterus area. She did not have a fever but was given 3 doses of intravenous antibiotics prior to discontinuing them. She is ambulating well and has just mild lochia. The uterus is firm but tender. She is tolerating a regular diet and is felt to be stable for discharge home. Information Peripartum Data: Delivery Method: Vaginal Physical Exam Const: COMMON NORMALS: no acute distress GENERAL APPEARANCE: cooperative, comfortable and well kempt Resp: COMMON NORMALS: normal respiratory effort, No retractions, No use of accessory muscles and clear to auscultation bilaterally AUSCULTATION: clear to auscultation bilaterally Cardio: COMMON NORMALS: regular rate, regular rhythm and No murmurs present (Cardio) RATE: regular rate RHYTHM: regular rhythm GI: COMMON NORMALS: Normal to inspection, nondistended, normoactive bowel sounds present and Soft to palpation; negative for non-tender (The uterine fundus is firm but mild to moderately tender to palpation.) PALPATION: Yes Soft to palpation : COMMON NORMALS: Yes no CVA tenderness BLADDER/KIDNEY EXAM: Yes no CVA tenderness Back/Pelvis: COMMON NORMALS: no CVA tenderness Extremity: COMMON NORMALS: normal to inspection, full ROM, capillary refill normal and no pedal edema Neuro: COMMON NORMALS: moves all extremities, no focal motor deficits, no sensory deficits noted and gait normal Psych: COMMON NORMALS: mental status grossly normal, Normal thought process present and normal affect APPEARANCE: Yes well kempt THOUGHT PROCESS: Normal thought process present Skin: COMMON NORMALS: no rashes or lesions noted GENERAL SKIN EXAM: no rashes or lesions noted Urinary Catheter Management^: Beck: Cath Placed During This Visit: yes Reason for Continuing Indwelling Catheter: Acute Urinary Retention or Obstruction Urinary Catheter Date of Insertion: 06/13/20 Urinary Catheter Time of Insertion: 18:30 Discharge Data Data Completed and Pending: Pending at discharge Category Date Time Status PACKED CELLS [Katherine kocyte Reduced RBC ] Stat Lab 06/14/20 01:43 Results Type and Screen S tat Lab 06/14/20 01:43 Results Labs from last 24 hours 06/14/20 06/14/20 06/13/20 12:45 12:27 10:10 WBC 11.3 H Cancelled Corrected WBC Cancelled RBC 3.28 L Cancelled Hgb 10.0 L Cancelled Hct 30.2 L Cancelled MCV 92.1 Cancelled MCH 30.5 Cancelled MCHC 33.1 Cancelled RDW 14.7 Cancelled Plt Count 196 Cancelled MPV 10.0 Cancelled Blood Type AB Positive Rho(D) Type Positive Antibody Screen Negative Crossmatch See Detail Vitals: Last Vital Signs Temp 97.2 F L 06/14/20 02:35 Pulse 77 06/14/20 22:13 Resp 16 06/14/20 22:00 BP 102/68 06/15/20 06:00 Pulse Ox 99 06/14/20 06:59 Discharge Plan Discharge Patient Disposition: Home Condition: Stable Prescriptions: New ibuprofen 800 mg Tablet 800 mg PO TID Qty: 90 RF: 1 DOK 100 mg Capsule 100 mg PO BID Qty: 60 RF: 2 Proctosol HC 2.5 % cream with perineal applicator 1 applic NH BID PRN (Reason: hemorrhoids) Qty: 1 RF: 3 ferrous sulfate 324 mg (65 mg iron) tablet,delayed release (DR/EC) 324 mg PO DAILY Qty: 30 RF: 1 Continued sgzmqljv-ktt-Mv-FA 1 mg Tablet 1 tab PO DAILY RF: 0 Discharge Orders: Discharge Order (Routine); Ordered 06/15/20 Ordered By: Messi Siegel Referrals: Messi Siegel MD [Primary Care Provider] - 6 Weeks Discharge Diet: Usual diet Discharge Activity: Resume usual activity Activity Restrictions/Additional Instructions: Please provide patient 1 oxycodone 5 mg p.o. prior to discharge. Discharge Attestations GEOTECHNICAL OPERATING ENGINEER Time Spent in Discharge Care*: less than 30 min Specific Discharge Activities: Specific discharge activities: educating patient, documenting/other paperwork and evaluating patient/reviewing data Coding Level of Care Code Acute Parts Back Counter Man for [facility] Fwd Diagnoses Uterine inversion N85.5 Spontaneous vaginal delivery O80
[2020-06-15] MEDS: docusate sodium 100 mg Capsule PO (10:51)
[2020-06-15] MEDS: prenatal vitamin Capsule 1 CAP PO (10:51)
[2020-06-15 10:55] VITALS: BP 106/64; PULSE 83
[2020-06-15 11:18] VITALS: RESP 18; TEMP 36.2
[2020-06-15 13:15] VITALS: BP 124/82; PULSE 107
[2020-06-15 13:36] VITALS: RESP 15; TEMP 36.8
[2020-06-15 14:32] VITALS: BP 124/82; PULSE 92; RESP 15; TEMP 36.8; O2SAT 99
== END 2020-06-15 14:30 | disposition home or self-care (01) | DRG 768 ==
PROVIDERS: Admitting Provider Family Medicine; Family Provider Family Medicine; PCP Family Medicine; Visit Provider Family Medicine
DX: O69.81X0 Labor and delivery complicated by cord around neck, without compression, not applicable or unspecified (principal); Z37.0 Single live birth; O71.2 Postpartum inversion of uterus; Z3A.39 39 weeks gestation of pregnancy; O26.53 Maternal hypotension syndrome, third trimester
CPT/HCPCS: 12345; 36415; 51702; 59025; 59409; 85025; 85027; 86850; 86900; 86920; 98960; J0290; J1580; J2210; J2795; P9016

== ENCOUNTER 2020-07-11 03:30 | Emergency (ER) | payer MEDICAID, SELFPAY ==
[2020-07-11 03:36] VITALS: BP 124/78; PULSE 60; RESP 17; TEMP 36.8; O2SAT 98; BMI 26.6
--- NOTE | 2020-07-11 03:38 | CTR_ITS ---
PROCEDURE INFORMATION: Exam: CT Abdomen And Pelvis With Contrast Exam date and time: 07/11/2020 3:43 AM Age: 29 years old Clinical indication: Abdominal pain; Localized; Prior surgery; Surgery type: Gb; Patient HX: Upper abd pain. 3 weeks post . TECHNIQUE: Imaging protocol: Computed tomography of the abdomen and pelvis with contrast. Radiation optimization: All CT scans at this facility use at least one of these dose optimization techniques: automated exposure control; mA and/or kV adjustment per patient size (includes targeted exams where dose is matched to clinical indication); or iterative reconstruction. Contrast material: OMNI 300; Contrast volume: 95 ml; Contrast route: INTRAVENOUS (IV); COMPARISON: No relevant prior studies available. RADIATION DOSE METRICS: Total DLP (mGy-cm): 856.25 FINDINGS: Lungs: The lung bases are clear. Liver: Unremarkable. Gallbladder and bile ducts: Prior cholecystectomy, no significant biliary tree dilation. Pancreas: Unremarkable. Spleen: Unremarkable. Adrenal glands: Unremarkable. Kidneys and ureters: Suspect mild focal parenchymal scarring involving the right kidney. No significant hydronephrosis of either kidney. No visible ureteral calculus. No perinephric fluid. The kidneys enhance homogeneously. 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 Stomach and bowel: Several small bowel loops are fluid filled and borderline prominent in size, but the overall appearance is not suggestive of significant small bowel obstruction at this time. This appearance could be secondary to some form of gastroenteritis. Please correlate clinically. If there is clinical suspicion for small bowel obstruction, follow-up may be helpful to exclude progression. Possibility of slightly thickened mucosa/wall in the distal antrum of the stomach. This is a nonspecific appearance, and may well be transient on CT, but could also represent evidence for gastritis or peptic ulcer disease. Please correlate clinically. There are no CT findings to strongly suggest diverticulitis. Appendix: The appendix is visualized and appears normal. Intraperitoneal space: No free air, or ascites. Vasculature: No evidence for abdominal aortic aneurysm. Lymph nodes: No retroperitoneal adenopathy. Urinary bladder: Unremarkable as visualized. Reproductive: The uterus appears essentially unremarkable. No definite abnormal ovarian/adnexal cyst or mass by CT. The ovarian veins are well opacified with contrast, no evidence for ovarian vein thrombosis. Bones/joints: No significant acute finding. Soft tissues: Small umbilical hernia, containing only fat. CT/CT abdomen pelvis w con* [id number] IMPRESSION: 1. No free intraperitoneal air. 2. Several small bowel loops are fluid filled and borderline prominent in size, see above discussion. This appearance could be secondary to some form of gastroenteritis. 3. Possible thickened mucosa/wall in the distal stomach, see above discussion. 4. Normal appendix. 5. Other findings discussed above. Radiation Dose CTDIVOL = (mGy): DLP = 856.25 (mGy-cm)
--- NOTE | 2020-07-11 03:43 | ED_ITS ---
HPI - Abdominal Pain General: Chief Complaint: Abdominal Pain Stated Complaint: sharp abd. pain Time Seen by Provider: 07/11/20 03:37 Source: patient Mode of arrival: ambulatory Limitations: no limitations History of Present Illness: HPI narrative: 29-year-old female who had epigastric pain that started roughly 3 to 4 hours ago. He states the pain is sharp in nature and rates it a 4 out of 10 currently and at its worst was an 8 out of 10. She had a vaginal delivery 3 weeks ago and had her gallbladder removed a year ago. She denies any vomiting or diarrhea. She denies any fever. MD elicited complaint: abdominal pain Pertinent past history: none Onset (ago): hour(s) Pain Consistency: constant Location: Epigastric Severity: moderate Quality: stabbing Associated Symptoms: Denies chills, diarrhea, dysuria, fever(s), nausea and vomiting Related Data: Date of Last Menstrual Period: 07/23/19 Review of Systems Const: Denies: fever(s), chills, body aches or change in appetite Eyes: Denies: blurry vision or eye discomfort ENMT: Denies: throat pain or dental pain Card: Denies: chest pain Resp: Denies: dyspnea GI: Reports: abdominal pain; Denies: nausea, vomiting or diarrhea : Denies: dysuria Musc: Denies: neck pain or back pain Skin/Breast: Denies: rash Neuro: Denies: headache(s) Psych: Denies: depression Fercho/Lymph: Denies: easy bruising All/Imm: Denies: urticaria PFS ED PFSH: Medical History (Updated 07/11/20 @ 05:04 by Cuauhtemoc Shi MD) Right upper quadrant abdominal pain Surgical History History of laparoscopic cholecystectomy (~08/2019) Family History Denies family history of Anesthesia complication Bleeding disorder Social History Smoking and tobacco status: never smoked Female Reproductive History: Date of last menstrual period: 07/23/19 Physical Exam Const: COMMON NORMALS: no acute distress, patient oriented x3 and healthy appearing HENMT: COMMON NORMALS: normocephalic and atraumatic HEAD & SCALP: normocephalic and atraumatic OTHER: Erythema to right ear canal consistent with otitis externa Eye: COMMON NORMALS: Equal, round and reactive pupils present and EOMs intact bilaterally PUPIL: Yes Equal, round and reactive pupils present Neck/C-Spine: COMMON NORMALS: full ROM and supple Chest: COMMONS NORMALS: normal inspection of the chest and normal palpation of entire chest wall Resp: COMMON NORMALS: normal respiratory effort, No retractions, No use of accessory muscles and clear to auscultation bilaterally AUSCULTATION: clear to auscultation bilaterally Cardio: COMMON NORMALS: regular rate, regular rhythm and No murmurs present (Cardio) RATE: regular rate RHYTHM: regular rhythm GI: COMMON NORMALS: Normal to inspection, nondistended, normoactive bowel sounds present, Soft to palpation and no masses PALPATION: Yes Soft to palpation and Yes Tenderness to palpation present (GI) (epigastric tenderness) Extremity: COMMON NORMALS: normal to inspection and full ROM Neuro: COMMON NORMALS: patient oriented x3, moves all extremities and no focal motor deficits Psych: COMMON NORMALS: mental status grossly normal, Normal thought process present and cooperative THOUGHT PROCESS: Normal thought process present Skin: COMMON NORMALS: no rashes or lesions noted and no wounds GENERAL SKIN EXAM: no rashes or lesions noted Course Vital Signs: Vital signs: Vital Signs Temperature 98.2 F 07/11/20 03:36 Pulse Rate 55 L 07/11/20 03:46 Respiratory Rate 15 07/11/20 04:03 Blood Pressure 105/73 07/11/20 03:46 Pulse Oximetry 97 07/11/20 03:46 MDM - Abdominal Pain MDM Narrative: Medical decision making narrative: Patient presents here with abdominal pain likely gastritis. Her pain is improved here and will start on Protonix. Patient's blood work and CT scan are normal. Patient also has otitis externa and will start her on otic drops. She is to follow-up with PCP in 3 to 5 days and return to the ER if worsening. Lab Data: Labs: Lab Results 07/11/20 07/11/20 Range/Units 03:52 03:52 WBC 5.4 (4.0-10.0) 10^3/ uL RBC 4.27 (4.1-5.3) 10^6/u L Hgb 12.6 (11.5-15.3) g/dL Hct 39.1 (37.0-47.0) % MCV 91.6 (81-99) fL MCH 29.5 (28.0-34.0) pg MCHC 32.2 (30.0-36.0) g/dL RDW 13.2 (12.1-15.1) % Plt Count 178 (130-400) 10^3/c mm MPV 9.8 (7.4-10.4) fL Neut % (Auto) 62.4 % Lymph % (Auto) 28.5 % [place] % (Auto) 6.5 % Eos % (Auto) 2.0 % Baso % (Auto) 0.4 % Neut # (Auto) 3.35 (1.8-7.7) 10^3/u L Lymph # (Auto) 1.5 (0.8-4.8) 10^3/u L [place] # (Auto) 0.4 (0.2-0.9) 10^3/u L Eos # (Auto) 0.1 (0.0-0.8) 10^3/u L Baso # (Auto) 0.0 (0.0-0.1) 10^3/u L Nucleated RBC % (a uto) 0 % Nucleated RBCs # 0.0 /100WBC Sodium 138 (136-145) mmol/L Potassium 3.7 (3.5-5.1) mmol/L Chloride 104 (98-107) mmol/L Carbon Dioxide 23 (22-29) mmol/L Anion Gap 14.7 (5-19) BUN 12 (6-20) mg/dL Creatinine 0.5 (0.5-0.9) mg/dL GFR Calculation 146.9 H (90-130) mL/min Glucose 98 (65-115) mg/dL Calculated Osmolal ity 286 (285-295) mOsm/k g Calcium 9.0 (8.5-10.5) mg/dL Total Bilirubin 0.3 (0.15-1.2) mg/dL AST 16 (0-32) U/L ALT 13 (0-33) U/L Alkaline Phosphata se 86 (35-105) IU/L Total Protein 7.2 (6.6-8.7) g/dL Albumin 4.2 (3.5-5.2) g/dL Globulin 3.0 (1.3-4.6) g/dL Lipase 47 (13-60) U/L Imaging Data ^: CT Abd/Pel: Radiologist's impression: [facility] [address] [place] [address] CT Scan Report Signed Patient: Lizette Eli Unit #: [id number] : 1990 Age/Sex: 29 / F ADM Date: 07/11/20 Loc: ER Room/Bed: Attending Dr: Ordering Provider/Ordering MD: Cuauhtemoc Shi MD Date of Service: 07/11/20 Procedure(s): CT abdomen pelvis w con* [id number] Accession Number(s): [id number] Report Number: [id number] PROCEDURE INFORMATION: Exam: CT Abdomen And Pelvis With Contrast Exam date and time: 07/11/2020 3:43 AM Age: 29 years old Clinical indication: Abdominal pain; Localized; Prior surgery; Surgery type: Gb; Patient HX: Upper abd pain. 3 weeks post . TECHNIQUE: Imaging protocol: Computed tomography of the abdomen and pelvis with contrast. Radiation optimization: All CT scans at this facility use at least one of these dose optimization techniques: automated exposure control; mA and/or kV adjustment per patient size (includes targeted exams where dose is matched to clinical indication); or iterative reconstruction. Contrast material: OMNI 300; Contrast volume: 95 ml; Contrast route: INTRAVENOUS (IV); COMPARISON: No relevant prior studies available. RADIATION DOSE METRICS: Total DLP (mGy-cm): 856.25 FINDINGS: Lungs: The lung bases are clear. Liver: Unremarkable. Gallbladder and bile ducts: Prior cholecystectomy, no significant biliary tree dilation. Pancreas: Unremarkable. Spleen: Unremarkable. Adrenal glands: Unremarkable. Kidneys and ureters: Suspect mild focal parenchymal scarring involving the right kidney. No significant hydronephrosis of either kidney. No visible ureteral calculus. No perinephric fluid. The kidneys enhance homogeneously. 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 Stomach and bowel: Several small bowel loops are fluid filled and borderline prominent in size, but the overall appearance is not suggestive of significant small bowel obstruction at this time. This appearance could be secondary to some form of gastroenteritis. Please correlate clinically. If there is clinical suspicion for small bowel obstruction, follow-up may be helpful to exclude progression. Possibility of slightly thickened mucosa/wall in the distal antrum of the stomach. This is a nonspecific appearance, and may well be transient on CT, but could also represent evidence for gastritis or peptic ulcer disease. Please correlate clinically. There are no CT findings to strongly suggest diverticulitis. Appendix: The appendix is visualized and appears normal. Intraperitoneal space: No free air, or ascites. Vasculature: No evidence for abdominal aortic aneurysm. Lymph nodes: No retroperitoneal adenopathy. Urinary bladder: Unremarkable as visualized. Reproductive: The uterus appears essentially unremarkable. No definite abnormal ovarian/adnexal cyst or mass by CT. The ovarian veins are well opacified with contrast, no evidence for ovarian vein thrombosis. Bones/joints: No significant acute finding. Soft tissues: Small umbilical hernia, containing only fat. CT/CT abdomen pelvis w con* [id number] IMPRESSION: 1. No free intraperitoneal air. 2. Several small bowel loops are fluid filled and borderline prominent in size, see above discussion. This appearance could be secondary to some form of gastroenteritis. 3. Possible thickened mucosa/wall in the distal stomach, see above discussion. 4. Normal appendix. 5. Other findings discussed above. Discharge Plan Discharge Patient Disposition: Home Clinical Impression: Abdominal pain Qualifiers: Abdominal location: epigastric Qualified Code(s): R10.13 - Epigastric pain Otitis externa Qualifiers: Otitis externa type: unspecified type Chronicity: acute Laterality: right Qualified Code(s): H60.501 - Unspecified acute noninfective otitis externa, right ear Condition: Stable Prescriptions: New Protonix 40 mg tablet,delayed release (DR/EC) 40 mg PO DAILY Qty: 60 RF: 0 ofloxacin 0.3 % drops 10 drp otic (ear) BID 147 Days Qty: 5 RF: 0 No Action acetaminophen-codeine 325-30 mg Tablet 1 tab PO RF: 0 Discharge Orders: Discharge ED (Routine); Ordered 07/11/20 Ordered By: Cuauhtemoc Shi Referrals: Messi Siegel MD [Primary Care Provider] - 1-3 days Discharge Diet: Advance as tolerated Discharge Activity: Resume usual activity Patient Instructions: Otitis Externa (ED), Abdominal Pain (ED) Coding Level of Care Code ED Line Driver for Chg Fwd Exam Comprehensive
[2020-07-11 03:46] VITALS: BP 105/73; PULSE 55; RESP 18; O2SAT 97
[2020-07-11 04:01] LABS: Basophils % 0.4 %; Eosinophils # 0.1 10^3/uL (0.0-0.8); Hematocrit 39.1 % (37.0-47.0); Hemoglobin 12.6 g/dL (11.5-15.3); Lymphocytes # 1.5 10^3/uL (0.8-4.8); Lymphocytes % 28.5 %; Mean Corpuscular HGB Conc 32.2 g/dL (30.0-36.0); Mean Corpuscular Hemoglobin 29.5 pg (28.0-34.0); Mean Corpuscular Volume 91.6 fL (81-99); Mean Platelet Volume 9.8 fL (7.4-10.4); Monocytes # 0.4 10^3/uL (0.2-0.9); Monocytes % 6.5 %; Neutrophils # 3.35 10^3/uL (1.8-7.7); Neutrophils % 62.4 %; Nucleated Red Blood Cells % 0 %; Platelet Count 178 10^3/cmm (130-400); Red Blood Count 4.27 10^6/uL (4.1-5.3); Red Cell Distribution Width 13.2 % (12.1-15.1); White Blood Count 5.4 10^3/uL (4.0-10.0)
[2020-07-11] MEDS: sodium chloride 0.9% 1,000 ML 999 ML IV (04:01)
[2020-07-11 04:03] VITALS: RESP 15
[2020-07-11] MEDS: ondansetron 2 mg/ML SDV 2 mL 4 MG IVP (04:03)
[2020-07-11] MEDS: morphine 4 mg/mL SDV 1 mL IVP (04:03)
[2020-07-11] MEDS: iohexol 300 mg/mL 100 mL Btl IV (04:07)
[2020-07-11 04:16] LABS: Alanine Aminotransferase 13 U/L (0-33); Albumin Level 4.2 g/dL (3.5-5.2); Alkaline Phosphatase 86 IU/L (35-105); Anion Gap 14.7 (5-19); Aspartate Amino Transferase 16 U/L (0-32); Blood Urea Nitrogen 12 mg/dL (6-20); Carbon Dioxide 23 mmol/L (22-29); Chloride 104 mmol/L (98-107); Glomerular Filtration Rate 146.9 mL/min (90-130); Glucose 98 mg/dL (65-115); Lipase 47 U/L (13-60); Osmolality Calculated 286 mOsm/kg (285-295); Potassium 3.7 mmol/L (3.5-5.1); Sodium 138 mmol/L (136-145); Total Bilirubin 0.3 mg/dL (0.15-1.2); Total Protein 7.2 g/dL (6.6-8.7)
[2020-07-11] MEDS: lidocaine 2% viscous 15 ML, aluminum-mag hydrox-simethicon 30 ML, sucralfate oral liq 1 GM PO (05:33)
--- NOTE | 2020-07-11 05:44 | PC.NURSE ---
Per physician - cancel UA
[2020-07-11 05:46] VITALS: BP 118/79; PULSE 52; RESP 17; O2SAT 100
== END 2020-07-11 05:54 | disposition home or self-care (01) ==
PROVIDERS: Emergency Provider Emergency Medicine; PCP Family Medicine
DX: R10.13 Epigastric pain (principal); H60.501 Unspecified acute noninfective otitis externa, right ear
CPT/HCPCS: 74177; 80053; 83690; 85025; 96361; 96374; 96375; 99283; J2270; J2405; J7030; Q9967

== ENCOUNTER → 2023-05-06 07:57 | Outpatient (BNVA) | payer BC, MEDICAID, SELFPAY | PROVIDERS: PCP Family Medicine; Visit Provider Nurse Practitioner Women's Health | DX: N92.6 Irregular menstruation, unspecified (principal) | CPT/HCPCS: 81025; 84315 ==

== ENCOUNTER → 2023-05-18 14:18 | Outpatient (BNVA) | payer BC, MEDICAID, SELFPAY | PROVIDERS: PCP Family Medicine; Visit Provider Nurse Practitioner Women's Health | DX: Z36.87 Encounter for antenatal screening for uncertain dates (principal) | CPT/HCPCS: 76801 ==

== ENCOUNTER → 2023-07-07 08:04 | Outpatient (BNVA) | payer BC, MEDICAID, SELFPAY | PROVIDERS: PCP Family Medicine; Visit Provider Obstetrics & Gynecology | DX: Z34.90 Encounter for supervision of normal pregnancy, unspecified, unspecified trimester (principal) | CPT/HCPCS: 80053; 80307; 82306; 84315; 85025; 86592; 86762; 86803; 86850; 86900; 87086; 87340; 87491; 87591; 87806 ==

== ENCOUNTER → 2023-08-03 14:06 | Outpatient (BNVA) | payer BC, MEDICAID, SELFPAY | PROVIDERS: PCP Family Medicine; Visit Provider Nurse Practitioner Women's Health | DX: Z36.87 Encounter for antenatal screening for uncertain dates (principal) | CPT/HCPCS: 76805 ==

== ENCOUNTER → 2023-09-28 12:30 | Outpatient (BNVA) | payer BC, MEDICAID, SELFPAY | PROVIDERS: PCP Family Medicine; Visit Provider Obstetrics & Gynecology | DX: O09.72 Supervision of high risk pregnancy due to social problems, second trimester (principal); Z3A.00 Weeks of gestation of pregnancy not specified | CPT/HCPCS: 82950; 85025 ==

== ENCOUNTER → 2023-11-04 09:29 | Outpatient (BNVA) | payer BC, MEDICAID, SELFPAY | PROVIDERS: PCP Family Medicine; Referring Provider Obstetrics & Gynecology; Visit Provider Obstetrics & Gynecology | DX: O09.33 Supervision of pregnancy with insufficient antenatal care, third trimester (principal); Z3A.34 34 weeks gestation of pregnancy | CPT/HCPCS: 76816 ==

== ENCOUNTER → 2023-11-09 08:07 | Outpatient (BNVA) | payer BC, MEDICAID, SELFPAY | PROVIDERS: PCP Family Medicine; Visit Provider Nurse Practitioner Women's Health | DX: Z34.90 Encounter for supervision of normal pregnancy, unspecified, unspecified trimester (principal) | CPT/HCPCS: 84315; 85025 ==

== ENCOUNTER → 2023-11-15 14:19 | Outpatient (BNVA) | payer BC, MEDICAID, SELFPAY | PROVIDERS: PCP Family Medicine; Visit Provider Obstetrics & Gynecology | DX: O09.899 Supervision of other high risk pregnancies, unspecified trimester (principal); O99.013 Anemia complicating pregnancy, third trimester; Z3A.00 Weeks of gestation of pregnancy not specified | CPT/HCPCS: 82607; 82728; 82746; 83550 ==

== ENCOUNTER 2023-12-03 09:00 | Oncology outpatient (recurring) (ONCR) | payer MEDICAID, SELFPAY ==
[2023-11-24 13:15] VITALS: BP 116/79; PULSE 77; RESP 16; TEMP 36.7; O2SAT 98
[2023-11-24] MEDS: iron sucrose 200 MG in sodium chloride 0.9% (100 ml) 100 ML 220 MG IV (13:17)
[2023-11-24] MEDS: sodium chloride 0.9% 250 ML 220 ML IV (13:18)
[2023-11-24 14:15] VITALS: BP 119/84; PULSE 76; RESP 16; TEMP 36.7; O2SAT 97
[2023-11-26 10:30] VITALS: BP 102/72; PULSE 95; RESP 18; TEMP 36.8; O2SAT 99
[2023-11-26] MEDS: iron sucrose 200 MG in sodium chloride 0.9% (100 ml) 100 ML 220 MG IV (11:23)
[2023-11-26 11:59] VITALS: BP 107/71; PULSE 73; RESP 18; TEMP 36.8; O2SAT 97
[2023-11-29 09:05] VITALS: BP 110/75; PULSE 85; RESP 16; TEMP 36.3; O2SAT 98
[2023-11-29] MEDS: sodium chloride 0.9% 250 ML 75 ML IV (09:19)
[2023-11-29] MEDS: iron sucrose 200 MG in sodium chloride 0.9% (100 ml) 100 ML 220 MG IV (09:19)
[2023-11-29 09:56] VITALS: BP 102/70; PULSE 74; RESP 16; TEMP 36.6; O2SAT 98
[2023-12-01] MEDS: iron sucrose 200 MG in sodium chloride 0.9% (100 ml) 100 ML 220 MG IV (09:48)
[2023-12-01 10:28] VITALS: BP 138/77; PULSE 98; RESP 16; TEMP 36.3; O2SAT 98
[2023-12-03] MEDS: iron sucrose 200 MG in sodium chloride 0.9% (100 ml) 100 ML 220 MG IV (09:29)
[2023-12-03 09:36] VITALS: BP 114/78; PULSE 88; RESP 16; TEMP 36.6; O2SAT 99
[2023-12-03 10:14] VITALS: BP 110/76; PULSE 94; RESP 16; TEMP 36.6; O2SAT 99
== END 2023-12-22 23:59 | disposition home or self-care (01) ==
PROVIDERS: PCP Family Medicine; Visit Provider Nurse Practitioner Women's Health
DX: O99.019 Anemia complicating pregnancy, unspecified trimester (principal)
CPT/HCPCS: 84315; 87081; 96365; J1756; J7050

== ENCOUNTER 2023-12-13 02:28 | Inpatient (IN) | payer MEDICAID, SELFPAY ==
[2023-12-13] VITALS (118 sets, daily range): BP systolic 79–139; BP diastolic 41–85; PULSE 60–153; RESP 16; TEMP 36.7; O2SAT 91–100; BMI 31.9
[2023-12-13 02:40] LABS: Basophils % 0.2 %; Eosinophils % 0.6 %; Hematocrit 36.5 % (36-47); Lymphocytes # 1.6 10^3/uL (0.8-4.8); Lymphocytes % 23.8 %; Mean Corpuscular HGB Conc 32.3 g/dL (30-55); Mean Corpuscular Hemoglobin 29.5 pg (27-33); Mean Corpuscular Volume 91.3 fl (85-98); Mean Platelet Volume 10.2 fL (7.4-10.4); Monocytes # 0.5 10^3/uL (0.2-0.9); Neutrophils % 67.9 %; Nucleated Red Blood Cells % 0 %; Platelet Count 151 10^3/cmm (157-399); Red Cell Distribution Width 22.5 % (12.1-15.1); White Blood Count 6.61 10^3/uL (3.29-11.43)
[2023-12-13] MEDS: lactated ringers 1,000 ML 999 ML IV ×3 (04:07→09:09)
[2023-12-13] MEDS: ROPivacaine syringe 100 MG/50 ML SYRINGE 13 MG EPIDURAL (05:39)
--- NOTE | 2023-12-13 05:52 | P.ANESASSM_ITS ---
Pre-Anesthetic Assessment Height/Weight: Height 1.65 m Weight 87.09 kg Pulse BP Pulse Ox O2 Del Method 75 113/69 98 Room Air 12/13/23 05:49 12/13/23 05:49 12/13/23 05:47 12/13/23 02:03 Preop Diagnosis: labor pain epidural Was Beta Dennis taken within 24 hours: N/A Was Clonidine taken within 24 hours: N/A Exam alert, oriented x 3, clear to auscultation bilaterally and regular rate & rhythm Airway Submandibular: within normal limits Cervical ROM: within normal limits Mallampati: Class II Dentition: full Pulmonary None reported CV/HEM None reported None reported Hepatic None reported GI Gastroesophageal Reflux Disease Metabolic None reported Musc/skel None reported Neuropsych None reported Anesthetic Plan ASA status: 2 Anesthesia: Regional (specify below) Risk of > 500 ml blood loss (7ml/kg in children): No Medications/Allergies Home Medications Medication Instructions Recorded Confirmed Last Taken Type Cholacol 1 cap PO DAILY 05/06/23 12/06/23 Unknown History Lactobacillus 1 cap PO DAILY 05/06/23 12/06/23 Unknown History no.51-Bifidobacterium no.4 50 billion cell capsule (up4 Probiotics Ultra) Zypan 1 cap PO DAILY 05/06/23 12/06/23 Unknown History cyanocobalamin (vitamin B-12) 1,000 mcg PO DAILY 05/06/23 12/06/23 Unknown History 1,000 mcg capsule famotidine 20 mg tablet (Pepcid) 20 mg PO BID #60 tabs 05/06/23 12/06/23 Unknown Rx mecobalamin 1,000 mcg-folate 3,400 1 cap PO DAILY 05/06/23 12/06/23 Unknown History mcg DFE-B6 10 [id number]-[id number] capsule Allergies Allergy/AdvReac Type Severity Reaction Status Date / Time No Known Allergies Allergy Verified 12/06/23 13:00 Current Medications Generic Name Dose Route Start Last Admin Trade Name Freq PRN Reason Stop Dose Admin Lactated Ringer's 1,000 mls @ 999 mls/hr 12/13/23 02:01 12/13/23 05:15 Lactated Ringers IV 999 mls/hr .Q1H1M PRN Administration See label comments Ropivacaine 100 mg in 50 mls @ 10 mls/hr 12/13/23 02:15 12/13/23 05:39 Naropin Syringe EPIDURAL 13 mls/hr .Q5H MALCOLM Administration PFSH Anesthesia Medical History No pertinent past medical history neghx: htn,dm,thyroid,dvt/pe PCP: Dr. Siegel Surgical History History of laparoscopic cholecystectomy (~08/2019) Family History Denies family history of Colon cancer Ovarian cancer Prostate cancer Diabetes Heart disease Hyperlipidemia Breast cancer Anesthesia complication Bleeding disorder Hypertension Uterine cancer Thyroid disease Stroke Social History Smoking and tobacco/nicotine status: never used tobacco/nicotine Female Reproductive History : 8 Data Anesthesia 12/13/23 02:18 Short CBC 12/13/23 Range/Units 02:18 WBC 6.61 (3.29-11.43) 10^3/uL Hgb 11.80 (11.27-16.99) g/dL Hct 36.5 (36-47) % MCV 91.3 (85-98) fl Plt Count 151 L (157-399) 10^3/cmm Neut % (Auto) 67.9 % Neut # (Auto) 4.50 (1.8-7.7) 10^3/uL Blood Bank 12/13/23 02:18 Blood Type AB Positive Rho(D) Type Rh positive Antibody Screen Negative Cardiac Studies: 2 No Data to Display
--- NOTE | 2023-12-13 05:54 | P.ANES_ITS ---
Anesthesia Procedures Procedure/Date: 12/13/23 epidural Procedure Narrative: epidural complete, bolus given, epidural pump initiated with EXTENSION PROFESSOR education given, vitals taken during procedure and satisfactory throughout, patient admits to decrease pain, report of procedure to OB RN Epidural: Time Out Performed: Yes Consents Signed: Procedure Consent Consent: requested by attending/covering physician, from patient, risks and benefits reviewed and patient agrees to proceed Lumbar Level: L3-L4 Ep idural position: sitting Epidural procedure: sterile prep of area, 1% lidocaine to numb the area (3 mL), 18 g needle, negative for paresthesia passed, neg for paresthesia, test dose given, 1.5% xylocaine 1:200k epi (5 mL), 0.2% Ropivacaine bolus ml (5 mL), placed PCEA, no systemic response, sterile dressing applied, L.U.D. no apparent complications and 0.2% Ropiavacaine @ mls/hr (13 mL/hr)
[2023-12-13] MEDS: oxytocin 30 UNIT/500 ML BAG 600 UNIT IV (08:46)
--- NOTE | 2023-12-13 08:52 | PM.OPHPUD ---
Labor & Delivery H&P Update Date of Procedure: December 13, 2023 Date H&P Performed: 12/06/23 H&P update information: I have reviewed H&P completed within last 30 days, I have examined patient prior to procedure and Changes to prior documentation as noted here (cervix 4 cm) Admission Diagnosis: Preop diagnosis: labor pain
--- NOTE | 2023-12-13 08:53 | PM.DELIVERY ---
Delivery Note: Date of delivery: December 13, 2023 Pre-delivery diagnoses: Term Post-delivery diagnoses: Term delivered Procedure: Spontaneous vaginal delivery Delivering Physician: Ab Walker MD Estimated blood loss (mL): 300 Findings: Female weight 3570 g, Apgars 8/9 Pre-Delivery Course: Ms. Bauer is a 32 year old established patient with an LMP of 02/21/23, MOHAN 12/19/23, placing her at 39-1/7 weeks CC: Onset of labor at term. HPI: Received appropriate care. Daily vitamins since start of care. labs have all been normal, including negative for HIV. She was found to negative for Group B Strep from screening at 36 weeks. She has gained approximately 20.50675 lbs throughout the . She denies a history of HTN during . Glucose tolerance screening for gestational diabetes was negative. Delivery: The patient was noted to be complete and pushing, so was placed in the dorsal lithotomy position, prepped and draped in the usual sterile fashion for a vaginal delivery. Pt. Noted to have epidural anesthesia. At 0836 the patient delivered a viable term female weighing 3570 g with scores of 8 and 9 at one and five minutes, respectively. The vertex was delivered spontaneously over intact perineum. The patient was asked to push and the head delivered spontaneously in the FITZ position, over an intact perineum. A nuchal cord was checked and none noted. The anterior shoulder delivered easily and the posterior shoulder followed. The remainder of the infant was easily delivered and the oropharynx and nasopharynx was bulb suctioned. The infant was noted to have spontaneous cry and spontaneous movement of all four extremities. The cord was clamped x 2 and cut and noted to have 2 arteries and one vein. The infant was passed to the mother's abdomen where nursing personnel were in attendance. The placenta delivered intact spontaneously and the uterus was explored. 20 units of Pitocin was placed in the IV bag to firm the uterus. Examination of the cervix and vaginal vault did not reveal any lacerations. Examination of the perineum showed no lacerations. The patient tolerated this procedure well, and recovered in L&D with her infant in their LDR room. All sponge and needle counts were correct. History History History 8 Term 7 0 Miscarriages/Ectopic 0 Living Children 7 Coding Level of Care Code Acute Code for Chg Fwd
[2023-12-13] MEDS: benzocaine-menthol 78 gm Canister 1 SPRAY TOPICAL (10:38)
[2023-12-13] MEDS: lanolin oint 7 gm 1 APPLIC TOPICAL (10:40)
[2023-12-13] MEDS: PRENATAL VIT NO.130/IRON/FOLIC 1 EACH TABLET PO (10:40)
[2023-12-13] MEDS: ibuprofen 800 mg tablet PO ×3 (10:40→21:03)
[2023-12-13] MEDS: docusate sodium 100 mg Capsule PO ×2 (10:40→21:04)
[2023-12-13 21:32] LABS: Hematocrit 28.1 % (36-47); Mean Corpuscular Hemoglobin 30.5 pg (27-33); Mean Corpuscular Volume 95.3 fl (85-98); Mean Platelet Volume 10.4 fL (7.4-10.4); Platelet Count 131 10^3/cmm (157-399); Red Blood Count 2.95 10^6/uL (3.85-5.65); Red Cell Distribution Width 22.5 % (12.1-15.1); White Blood Count 6.79 10^3/uL (3.29-11.43)
[2023-12-14] VITALS (16 sets, daily range): BP systolic 91–131; BP diastolic 58–81; PULSE 63–78; RESP 14–17; TEMP 36.6–36.8; O2SAT 97–100
[2023-12-14] MEDS: lactated ringers 1,000 ML 999 ML IV (06:03)
--- NOTE | 2023-12-14 06:30 | ANE.PACU2 ---
Inpatient post-anesthesia follow up: Airway intact: Yes Vital signs: Temperature 98 F Pulse Rate 71 Respiratory Rate 17 Blood Pressure 113/67 Pulse Oximetry 100 Oxygen Delivery Me thod Room Air Oxygen Flow Rate Fraction of Inspir ed Oxygen Hydration adequate: Yes Nausea and vomiting: Yes Pain level: 1 Mental status: Baseline Epidural Start/End: Epidural Start Date: 12/13/23 Epidural Start Time: 05:18 Epidural End Date: 12/13/23 Epidural End Time: 16:23
--- NOTE | 2023-12-14 06:42 | ANES.PREANE2 ---
Pre-Anesthetic Assessment Height/Weight: Height 1.65 m Weight 87.09 kg Temp Pulse Resp BP Pulse Ox O2 Del Method 98.2 F 73 16 97/61 97 Room Air 12/14/23 04:00 12/14/23 04:00 12/14/23 04:00 12/14/23 04:00 12/14/23 04:00 12/14/23 04:00 Preop Diagnosis: undesired fertility Operation Date: 12/14/23 07:00 Proposed Procedures p Post Bilateral Tubal Ligation(Not Applicable) - Ab Walker MD Familial anesthetic complications: none Was Beta Dennis taken within 24 hours: N/A Was Clonidine taken within 24 hours: N/A Last intake: meal 12/13/232029 liquid 12/13/232229 Social No alcohol and No tobacco Exam alert, oriented x 3, clear to auscultation bilaterally and regular rate & rhythm Airway Submandibular: within normal limits Cervical ROM: within normal limits Mallampati: Class II Dentition: full Pulmonary None reported CV/HEM Anemia None reported Hepatic None reported GI Gastroesophageal Reflux Disease Metabolic None reported Musc/skel None reported Neuropsych None reported Anesthetic Plan ASA status: 2 Anesthesia: General Other: given the option of GETA vs SAB patient elected to have GETA. risk and benefit reviewed. Medications/Allergies Home Medications Medication Instructions Recorded Confirmed Last Taken Type Cholacol 1 cap PO DAILY 05/06/23 12/06/23 Unknown History Lactobacillus 1 cap PO DAILY 05/06/23 12/06/23 Unknown History no.51-Bifidobacterium no.4 50 billion cell capsule (up4 Probiotics Ultra) Zypan 1 cap PO DAILY 05/06/23 12/06/23 Unknown History cyanocobalamin (vitamin B-12) 1,000 mcg PO DAILY 05/06/23 12/06/23 Unknown History 1,000 mcg capsule famotidine 20 mg tablet (Pepcid) 20 mg PO BID #60 tabs 05/06/23 12/06/23 Unknown Rx mecobalamin 1,000 mcg-folate 3,400 1 cap PO DAILY 05/06/23 12/06/23 Unknown History mcg DFE-B6 10 yf-C4-bhujyxr capsule Allergies Allergy/AdvReac Type Severity Reaction Status Date / Time No Known Allergies Allergy Verified 12/06/23 13:00 Current Medications Generic Name Dose Route Start Last Admin Trade Name Freq PRN Reason Stop Dose Admin Benzocaine 1 spray 12/13/23 09:53 12/13/23 10:38 Benzocaine-Menthol 78 Gm Canister TOPICAL 1 spray PRN PRN Administration PAIN Docusate Sodium 100 mg 12/13/23 09:53 12/13/23 21:04 Docusate Sodium 100 Mg Capsule PO 100 mg BID MALCOLM Administration Ibuprofen 800 mg 12/13/23 09:53 12/13/23 21:03 Ibuprofen 800 Mg Tablet PO 800 mg TID MALCOLM Administration Lanolin 1 applic 12/13/23 09:53 12/13/23 10:40 Lanolin Oint 7 Gm TOPICAL 1 applic PRN PRN Administration DRYNESS Prenat Multivit/[place]/Iron/Folic Ac 1 each 12/13/23 09:53 12/13/23 10:40 Vit No.130/Iron/Folic 1 Each Tablet PO 1 each DAILY MALCOLM Administration PFSH Anesthesia Medical History No pertinent past medical history neghx: htn,dm,thyroid,dvt/pe PCP: Dr. Siegel Surgical History History of laparoscopic cholecystectomy (~08/2019) Family History Denies family history of Colon cancer Ovarian cancer Prostate cancer Diabetes Heart disease Hyperlipidemia Breast cancer Anesthesia complication Bleeding disorder Hypertension Uterine cancer Thyroid disease Stroke Social History Smoking and tobacco/nicotine status: never used tobacco/nicotine Female Reproductive History : 8 Data Anesthesia 12/13/23 21:13 Short CBC 12/13/23 12/13/23 Range/Units 02:18 21:13 WBC 6.61 6.79 (3.29-11.43) 10^3/uL Hgb 11.80 9.00 L (11.27-16.99) g/dL Hct 36.5 28.1 L (36-47) % MCV 91.3 95.3 (85-98) fl Plt Count 151 L 131 L (157-399) 10^3/cmm Neut % (Auto) 67.9 % Neut # (Auto) 4.50 (1.8-7.7) 10^3/uL Blood Bank 12/13/23 02:18 Blood Type AB Positive Rho(D) Type Rh positive Antibody Screen Negative Cardiac Studies: No Data to Display
[2023-12-14] MEDS: citric acid-sodium citrate 30 mL UDC PO (06:47)
[2023-12-14] MEDS: famotidine 20 mg/2 mL INJ IVP (06:47)
[2023-12-14] MEDS: metoclopramide 5 mg/mL SDV 2 mL 10 MG IVP (06:47)
--- NOTE | 2023-12-14 06:49 | W.PM.OPSUD ---
Surgery/Procedure H&P Update DATE OF PROCEDURE: December 14, 2023 DATE H&P PERFORMED: 12/06/23 H&P UPDATE INFORMATION: I have reviewed H&P completed within last 30 days, I have examined patient prior to procedure and No changes to prior documentation PREOP DIAGNOSIS: undesired fertility PLANNED PROCEDURE: Operation Date: 12/14/23 07:00 Proposed Procedures p Post Bilateral Tubal Ligation(Not Applicable) - Ab Walker MD
[2023-12-14] MEDS: ceFAZolin 2,000 mg SDV 2000 MG IVP (07:15)
[2023-12-14] MEDS: lidocaine-epi 2% 20 mL INJ INJECTION (07:33)
--- NOTE | 2023-12-14 07:37 | PM.OP ---
Operative Report Date of procedure: December 14, 2023 Pre-op diagnosis: delivered Desires permanent sterilization Post-op diagnosis: same Procedure done: bilateral salpingectomy Specimens removed/disposition: Left and right fallopian tube Surgeon: Ab Walker MD Estimated blood loss (mL): 5 IV fluids (mL): 900 Complications: None Findings: Enlarged uterus Brief History: Mrs. Eli 33-year-old female G8, P8 status post spontaneous vaginal delivery desiring permanent sterilization. Procedure: The patient was informed of the risks and benefits of the procedure. Risks included but were not limited to bleeding, infection, and injury to internal organs. The patient was counseled on the risk of sterilization failure. The patient was informed that in the event a occurs the risk of ectopic is increased. The patient was counseled that bilateral tubal ligation is intended to be permanent and nonreversible. She was also counseled that there are nonpermanent forms of control available to her. The patient expressed understanding of the risks involved, all questions were answered, and the patient consented to the procedure. After assuring informed consent. The patient was taken to the operating room and general anesthesia administered. Time-out procedure was performed. A small, transverse, infraumbilical skin incision was made with a scalpel, and the incision was carried down through the underlying fascia until the peritoneum was identified and entered. The left fallopian tube was identified, brought into the incision and grasped with a [place] clamp. The tube was then followed out to the fimbria. An avascular midsection of the fallopian tube was grasped with a [place] clamp and brought to incision. Using the Virtual 3-D Display for [employer] Fine Fusion device the fallopian tube was clamped, seal and cut at the cornua level. The specimen was sent to pathology. Excellent hemostasis was noted, and the cornua was returned to the abdomen. The same procedure was performed on the opposite fallopian tube. The fascia was then closed with O-Vicryl in a single layer. The skin was closed with 3-O Monocryl in a subcuticular fashion. 2% lidocaine with epinephrine was around the incision site. The patient tolerated the procedure well. Needle and sponge counts were correct times 3.
--- NOTE | 2023-12-14 08:15 | ANE.PACU2 ---
Inpatient post-anesthesia follow up: Airway intact: Yes Vital signs: Temperature 98 F Pulse Rate 71 Respiratory Rate 17 Blood Pressure 113/67 Pulse Oximetry 100 Oxygen Delivery Me thod Room Air Oxygen Flow Rate Fraction of Inspir ed Oxygen Hydration adequate: Yes Nausea and vomiting: Yes Pain level: 1 Mental status: Baseline
[2023-12-14] MEDS: HYDROcodone-acetaminophen 5-325 mg Tablet PO ×3 (08:34→18:28)
[2023-12-14] MEDS: docusate sodium 100 mg Capsule PO ×2 (08:34→18:28)
[2023-12-14] MEDS: dextrose 5%-lactated ringers 1,000 ML 125 ML IV (08:35)
--- NOTE | 2023-12-14 15:49 | P.DS_ITS ---
Discharge Providers [employer] PERSON Date of Admission: 12/13/23 02:28 Date of Discharge: 12/14/23 Attending Provider at Admission: Ab Walker MD Attending Provider at Discharge: Ab Walker MD Primary [employer] PERSON: Ab Walker MD Primary Care Provider: Messi Siegel MD Reason for Visit Reason for Visit: possible ROM, contractions Hospital Course Hospital Course Ms. Eli is a 32 year old established patient with an LMP of 02/21/23, MOHAN 12/19/23, with estimated stational age at 39 weeks +1-day. Came to labor and delivery in active labor. She progressed to have a spontaneous vaginal delivery without complication. She delivered a female with a birthweight of 3570 g with an 8/9. She had previously signed a consent for permanent sterilization. bilateral salpingectomy was performed without complication. Overnight observation was uneventful. Postop observation uneventful. She is afebrile hemodynamically stable. Tolerating diet well. Ambulating without difficulty. She was counseled regarding pelvic rest for 6 weeks (no sex, no tampons, no vaginal douches). Return to the emergency room if any fever, increased bleeding or pain. Information Peripartum Data: Delivery Method: Vaginal Physical Exam Narrative: GA; alert and oriented x 3 HEENT: normal Breasts: engorged Nipples - skin intact Lungs; clear to auscultation Heart: regular rhythm, no murmurs. Abd: Appropriately tender. BS+. Uterine fundus below umbilicus. No Fundal Tenderness. Minimal tenderness, incision clean and dry, no redness, pain or edema. Perineum: normal lochia. Extremities: no edema, no cyanosis, no tenderness. History History History 8 Term 7 0 Miscarriages/Ectopic 0 Living Children 7 Discharge Data Studies Completed and Pending Pending at discharge Category Date Time Status Hemagram Timed Lab 12/15/23 05:00 Uncollected Pathology: Surgical [PTH] Routine Pth 12/14/23 09:25 Received Laboratory Results WBC 6.79 10^3/uL (3.29-11.43) 12/13/23 21:13 RBC 2.95 10^6/uL (3.85-5.65) L 12/13/23 21:13 Hgb 9.00 g/dL (11.27-16.99) L 12/13/23 21:13 Hct 28.1 % (36-47) L 12/13/23 21:13 MCV 95.3 fl (85-98) 12/13/23 21:13 MCH 30.5 pg (27-33) 12/13/23 21:13 MCHC 32.0 g/dL (30-55) 12/13/23 21:13 RDW 22.5 % (12.1-15.1) H 12/13/23 21:13 Plt Count 131 10^3/cmm (157-399) L 12/13/23 21:13 MPV 10.4 fL (7.4-10.4) 12/13/23 21:13 Neut % (Auto) 67.9 % 12/13/23 02:18 Lymph % (Auto) 23.8 % 12/13/23 02:18 [place] % (Auto) 7.0 % 12/13/23 02:18 Eos % (Auto) 0.6 % 12/13/23 02:18 Baso % (Auto) 0.2 % 12/13/23 02:18 Neut # (Auto) 4.50 10^3/uL (1.8-7.7) 12/13/23 02:18 Lymph # (Auto) 1.6 10^3/uL (0.8-4.8) 12/13/23 02:18 [place] # (Auto) 0.5 10^3/uL (0.2-0.9) 12/13/23 02:18 Eos # (Auto) 0.0 10^3/uL (0.0-0.8) 12/13/23 02:18 Baso # (Auto) 0.0 10^3/uL (0.0-0.1) 12/13/23 02:18 Nucleated RBC % (auto) 0 % 12/13/23 02:18 Nucleated RBCs # 0.0 /100WBC 12/13/23 02:18 Blood Type AB Positive 12/13/23 02:18 Rho(D) Type Rh positive 12/13/23 02:18 Antibody Screen Negative 12/13/23 02:18 Vitals Last Vital Signs Temp 98.0 F 12/14/23 12:49 Pulse 71 12/14/23 12:49 Resp 16 12/14/23 12:49 BP 107/69 12/14/23 12:49 Pulse Ox 98 12/14/23 12:49 O2 Del Method Room Air 12/14/23 12:49 Results Labs OB ([facility]): Obstetrics US 11/04/23 Blood Type AB Positive 12/13/23 Antibody Screen Negative 12/13/23 Hct 28.1 % (36-47) L 12/13/23 Hgb 9.00 g/dL (11.27-16.99) L 12/13/23 Rho(D) Type Rh positive 12/13/23 Plt Count 131 10^3/cmm (157-399) L 12/13/23 Hep Bs Antigen Non-reactive (Nonreactive) 07/07/23 Hepatitis C Antibody Non-reactive (Nonreactive) 07/07/23 Rubella IgG Antibody 23.1 IU/mL (0.0-10.0) H 07/07/23 RPR Nonreactive (Nonreactive) 07/07/23 HIV 1&2 Ab & HIV 1 Ag Non-reactive (Non-Reactiv) 07/07/23 C.trachomatis RNA (TMA) Not detected (NOT DETECTED) N.gonorrhoeae RNA (TMA) Not detected (NOT DETECTED) Chlamydia/GC Comment See note 07/07/23 Glucose 1 Hr 50 gm 99 mg/dL (85-140) 09/28/23 HCG, Qual Positive (Negative) H 05/06/23 Urine Opiates Screen Negative ng/mL (Negative) 07/07/23 Ur Barbiturates Screen Negative ng/mL (Negative) 07/07/23 Ur Phencyclidine Scrn Negative ng/mL (Negative) 07/07/23 Ur Amphetamines Screen Negative ng/mL (Negative) 07/07/23 U Benzodiazepines Scrn Negative ng/mL (Negative) 07/07/23 Urine Cocaine Screen Negative ng/mL (Negative) 07/07/23 U Marijuana (THC) Screen Negative ng/mL (Negative) 07/07/23 Micro Urine Specimen 07/07/23 Discharge Plan Discharge Patient Disposition: Home Condition: Stable Prescriptions: New hydrocodone-acetaminophen 5-325 mg tablet 1 tab PO Q4H PRN (Reason: pain) Qty: 10 0RF acetaminophen 325 mg capsule 325 mg PO Q4H PRN (Reason: fever or pain) Qty: 60 0RF docusate sodium [Colace] 100 mg capsule 100 mg PO BID Qty: 60 0RF ferrous sulfate [Iron (ferrous sulfate)] 325 mg (65 mg iron) tablet 325 mg PO BID Qty: 60 0RF ibuprofen 800 mg tablet 800 mg PO TID PRN (Reason: pain) Qty: 60 0RF Continued cyanocobalamin (vitamin B-12) 1,000 mcg capsule 1,000 mcg PO DAILY up4 Probiotics Ultra 50 billion cell capsule 1 cap PO DAILY [id number]-dtnhvt-[id number]-betain 1,000 mcg-3,400 mcg DFE-10 mg capsule 1 cap PO DAILY Cholacol 1 cap PO DAILY Zypan 1 cap PO DAILY famotidine [Pepcid] 20 mg tablet 20 mg PO BID Qty: 60 2RF Discharge Orders: Discharge Order (Routine); Ordered 12/14/23 Ordered By: Ab Walker Referrals: Ab Walker MD [Physician] - 2 weeks Discharge Diet: Usual diet Discharge Activity: Limit activity as instructed Patient Instructions: Depression (DC), Bleeding (DC), Opioid Safety (DC), Preeclampsia and Eclampsia After Delivery (GEN), Tubal Ligation (DC), Hemorrhage (DC), OB Discharge Report, OB Food/Drug Interaction Guide, Opioid Safety, OB Home Care, OB Vaginal Deliveries - [facility], Abnormal Bleeding Activity Restrictions/Additional Instructions: 1. Please call [facility] on next working day to make your post-operative appointment in 2 weeks. 2. Please stay home until you come back to the clinic on first post- hospatilization check up. 3. Please follow instructions on your medications CAREFULLY. 4. If you have abdominal incision, do not cover it unless dressing is necessary because of drainage. OK to shower, but avoid bath. Leave steri-strips until they fall off. If they are still on one week after surgery, you may remove them. 5. If you had vaginal surgery or vaginal repair, Dr. Walker may instruct you to take SITZ bath. 6. Yellow, blood tinged odorous vaginal discharge is usually normal after hysterectomy or vaginal surgeries. 7. No SEXUAL INTERCOURSE, tampons, or douches until you are completely released from the post-operative care. 8. Avoid constipation by eating right and maybe using some Metamucil or Milk of Magnesia. 9. All prescription refills are given during the working hours. Please do no wait till it runs out. Call the clinic at [phone] before your medication runs out. The clinic will get in touch with your doctor to prescribe medications if necessary. 10. Please remain within 40 mile radius from our hospital because emergencies do happen now and then during the post-operative period. 11. If you have stairs at home, take one step at a time slowly and minimize the number of trips. It helps to stay in one floor for the next few days. No lifting except what you can lift by one hand until you are released from the post-operative care. 12. Driving is discouraged until you are well healed. It may be 3-4 weeks before you feel strong enough to drive. You should be able to turn and look through the rear window without pain and you should be able to push the brake pedal very hard without pain before you drive. No fast rules, but SAFETY should be your primary concern. DO NOT drive if you are on sedating medications such as narcotics. 13. Call the clinic (during working hours) to make urgent appointment or go to the Emergency room, if any of the following occurs: i. Vaginal bleeding becomes heavy, more than a period. ii. Incision becomes red and sore, or drains pus. iii. Your TEMPERATURE is over 100.4F or you have chill. iv. IV site becomes red and swollen (a little ``knot?? is usually OK) v. Persistent nausea and vomiting vi. Persistent constipation or diarrhea vii. Rash or allergic reaction to medications. Discharge Attestations [employer] PERSON Time Spent in Discharge Care*: greater than 30 min Coding Level of Care Code Acute Code for Chg Fwd
[2023-12-14] MEDS: ibuprofen 800 mg tablet PO (16:28)
== END 2023-12-14 19:53 | disposition home or self-care (01) | DRG 798 ==
LOC: OPOB 05:05 → OBGYN 05:05
PROVIDERS: Admitting Provider Obstetrics & Gynecology; PCP Family Medicine; Visit Provider Obstetrics & Gynecology
PROC: 0UB70ZZ Excision of Bilateral Fallopian Tubes, Open Approach (ICD-10-PCS; CPT 58605; principal; 2023-12-14 07:00)
DX: O80 Encounter for full-term uncomplicated delivery (principal); Z37.0 Single live birth; Z30.2 Encounter for sterilization; Z3A.39 39 weeks gestation of pregnancy
CPT/HCPCS: 36415; 59025; 59409; 83986; 85025; 85027; 86850; 86900; 88302; 96374; 99211; J0330; J0690; J1100; J1885; J2405; J2590; J2704; J2765; J2795; J3010; J3490; J7120; J7121